=== PATIENT | male | born 1965 | race Caucasian/White ===

== ENCOUNTER 2022-09-01 12:20 | Inpatient (IN) | payer MEDICARE ==
--- NOTE | 2022-09-01 12:40 | ED ---
General Adult HPI - General Chief complaint: Shortness of Breath Stated complaint: SOB Time Seen by Provider: 09/01/22 12:27 Source: EMS Mode of arrival: EMS Limitations: no limitations - History of Present Illness Initial comments: This patient is a 57-year-old man presents to have evaluation for dyspnea. The patient states that he was in usual state of health until approximately 3 days ago. He states that he had been mowing his lawn with the riding lawnmower. Around 4:30 in the afternoon he stopped to get a drink of water. He states that when he got off the riding lawnmower he passed out. He remembers waking up just before midnight. He states that he crawled into the house and he stayed there until today. He states that today's breathing felt worse, so he called EMS who transported him here. He is complaining mainly of dyspnea. He has not noted fever or chills, no cough. He states there is a little bit of left chest pain when he takes a deep breath then. No abdominal pain, nausea or vomiting. No change in bowel movements or urination. He has not noted leg pain or swelling. Onset/Timin -: days(s) Quality: dull Consistency: intermittent Improves with: none Worsens with: other Associated Symptoms: shortness of breath Treatments Prior to Arrival: none - Related Data Home Medications Medication Instructions Recorded Confirmed Lidocaine 4% Cream [Lmx 4] 1 applic TOPICAL BID 09/01/22 09/01/22 Pioglitazone [Actos] 15 mg PO DAILY 09/01/22 09/01/22 Pregabalin [Lyrica] 300 mg PO BID 09/01/22 09/01/22 metFORMIN HCL [Glucophage] 500 mg PO DAILY 09/01/22 09/01/22 sitaGLIPtin [Januvia] 100 mg PO DAILY 09/01/22 09/01/22 Previous Rx's Medication Instructions Recorded Apixaban [Eliquis] 5 mg PO BID #60 tab 09/02/22 Amiodarone [Cordarone] 200 mg PO BID #180 tab 09/07/22 Atorvastatin [Lipitor] 40 mg PO DAILY #30 tab 09/07/22 Dapagliflozin Propanediol [Farxiga] 10 mg PO DAILY #30 tab 09/07/22 Furosemide [Lasix] 20 mg PO BID@0900,1600 #60 tab 09/07/22 Metoprolol Succinate (ER) [Toprol 50 mg PO DAILY #30 tab 09/07/22 XL] Nitroglycerin Sl Tabs [Nitrostat] 0.4 mg SUBLINGUAL Q5M PRN #10 tab 09/07/22 Spironolactone [Aldactone] 25 mg PO DAILY #30 tab 09/07/22 lisinopriL [Zestril] 2.5 mg PO DAILY #30 tab 09/07/22 Allergies Allergy/AdvReac Type Severity Reaction Status Date / Time Fish Containing Products Allergy Anaphylaxis Verified 09/01/22 15:06 [Fish] morphine AdvReac Itching Verified 09/01/22 15:06 Review of Systems ROS Statement: Those systems with pertinent positive or pertinent negative responses have been documented in the HPI. ROS Other: All systems not noted in ROS Statement are negative. Constitutional: Reports: weakness. Denies: fever, chills Eyes: Denies: vision change ENT: Denies: congestion Respiratory: Reports: as per HPI, dyspnea, wheezes. Denies: cough, hemoptysis Cardiovascular: Reports: as per HPI, chest pain, palpitations, syncope. Denies: orthopnea, edema Gastrointestinal: Denies: abdominal pain, vomiting, diarrhea, melena, hematochezia Genitourinary: Denies: dysuria, hematuria Musculoskeletal: Denies: back pain Skin: Denies: rash Neurological: Denies: headache, weakness Past Medical History Past Medical History: Diabetes Mellitus, Hypertension History of Any Multi-Drug Resistant Organisms: None Reported Past Surgical History: Back Surgery, Orthopedic Surgery Past Psychological History: Anxiety Smoking Status: Current every day smoker Past Alcohol Use History: Daily Past Drug Use History: None Reported General Exam Limitations: no limitations General appearance: alert, in no apparent distress Head exam: Present: atraumatic, normocephalic Eye exam: Present: normal appearance. Absent: scleral icterus, conjunctival injection ENT exam: Present: mucous membranes dry Neck exam: Present: normal inspection Respiratory exam: Present: wheezes, chest wall tenderness. Absent: rales, rhonchi, stridor, accessory muscle use, decreased breath sounds Cardiovascular Exam: Present: tachycardia, irregular rhythm, systolic murmur. Absent: diastolic murmur, rubs, gallop GI/Abdominal exam: Present: soft. Absent: distended, tenderness, guarding, rebound, rigid, mass Extremities exam: Present: normal inspection, normal capillary refill. Absent: pedal edema, calf tenderness Back exam: Present: normal inspection. Absent: CVA tenderness (R), CVA tenderness (L) Neurological exam: Present: alert Skin exam: Present: warm, dry, intact, normal color. Absent: rash Course Vital Signs 09/01/22 09/01/22 09/01/22 12:27 13:22 14:53 Temperature 98.4 F Pulse Rate 171 H 146 H 140 H Respiratory 20 22 18 Rate Blood Pressure 132/104 102/92 111/76 O2 Sat by Pulse 98 94 L 96 Oximetry 09/01/22 17:05 Temperature Pulse Rate 137 H Respiratory 20 Rate Blood Pressure 114/77 O2 Sat by Pulse Oximetry EKG Findings - EKG Results: EKG: interpreted by JEANINE, normal axis EKG shows: atrial fibrillation (Rate approximately 171 bpm) Medical Decision Making - Lab Data Result diagrams: 09/03/22 11:59 09/07/22 09:18 Lab Results 09/01/22 09/01/22 09/01/22 Range/Units 12:49 12:49 12:49 WBC 10.2 (3.8-10.6) k/uL RBC 4.63 (4.30-5.90) m/uL Hgb 15.8 (13.0-17.5) gm/dL Hct 46.3 (39.0-53.0) % MCV 100.0 (80.0-100.0) fL MCH 34.2 (25.0-35.0) pg MCHC 34.2 (31.0-37.0) g/dL RDW 13.2 (11.5-15.5) % Plt Count 169 (150-450) k/uL MPV 8.9 Neutrophils % 74 % Lymphocytes % 16 % Monocytes % 7 % Eosinophils % 1 % Basophils % 0 % Neutrophils # 7.6 (1.3-7.7) k/uL Lymphocytes # 1.6 (1.0-4.8) k/uL Monocytes # 0.7 (0-1.0) k/uL Eosinophils # 0.1 (0-0.7) k/uL Basophils # 0.0 (0-0.2) k/uL PT 11.2 (9.0-12.0) sec INR 1.0 (<1.2) APTT 24.2 (22.0-30.0) sec D-Dimer 0.92 H (<0.60) mg/L FEU Sodium 136 L (137-145) mmol/L Potassium 4.3 (3.5-5.1) mmol/L Chloride 107 (98-107) mmol/L Carbon Dioxide 18 L (22-30) mmol/L Anion Gap 11 mmol/L BUN 19 (9-20) mg/dL Creatinine 0.88 (0.66-1.25) mg/dL Est GFR (CKD-EPI)AfAm >90 (>60 ml/min/1.73 sqM) Est GFR (CKD-EPI)NonAf >90 (>60 ml/min/1.73 sqM) Glucose 168 H (74-99) mg/dL Calcium 8.9 (8.4-10.2) mg/dL Magnesium 1.8 (1.6-2.3) mg/dL Total Bilirubin 1.0 (0.2-1.3) mg/dL AST 21 (17-59) U/L ALT 21 (4-49) U/L Alkaline Phosphatase 74 (38-126) U/L Troponin I (0.000-0.034) ng/mL Total Protein 6.8 (6.3-8.2) g/dL Albumin 4.2 (3.5-5.0) g/dL TSH 1.220 (0.465-4.680) mIU/L 09/01/22 Range/Units 12:49 WBC (3.8-10.6) k/uL RBC (4.30-5.90) m/uL Hgb (13.0-17.5) gm/dL Hct (39.0-53.0) % MCV (80.0-100.0) fL MCH (25.0-35.0) pg MCHC (31.0-37.0) g/dL RDW (11.5-15.5) % Plt Count (150-450) k/uL MPV Neutrophils % % Lymphocytes % % Monocytes % % Eosinophils % % Basophils % % Neutrophils # (1.3-7.7) k/uL Lymphocytes # (1.0-4.8) k/uL Monocytes # (0-1.0) k/uL Eosinophils # (0-0.7) k/uL Basophils # (0-0.2) k/uL PT (9.0-12.0) sec INR (<1.2) APTT (22.0-30.0) sec D-Dimer (<0.60) mg/L FEU Sodium (137-145) mmol/L Potassium (3.5-5.1) mmol/L Chloride (98-107) mmol/L Carbon Dioxide (22-30) mmol/L Anion Gap mmol/L BUN (9-20) mg/dL Creatinine (0.66-1.25) mg/dL Est GFR (CKD-EPI)AfAm (>60 ml/min/1.73 sqM) Est GFR (CKD-EPI)NonAf (>60 ml/min/1.73 sqM) Glucose (74-99) mg/dL Calcium (8.4-10.2) mg/dL Magnesium (1.6-2.3) mg/dL Total Bilirubin (0.2-1.3) mg/dL AST (17-59) U/L ALT (4-49) U/L Alkaline Phosphatase (38-126) U/L Troponin I <0.012 (0.000-0.034) ng/mL Total Protein (6.3-8.2) g/dL Albumin (3.5-5.0) g/dL TSH (0.465-4.680) mIU/L Disposition Clinical Impression: Atrial fibrillation with rapid ventricular response Disposition: ADMITTED IP TO THIS HOSP Condition: Fair Is patient prescribed a controlled substance at d/c from ED?: No
[2022-09-01] MEDS ORDERED: DILTIAZEM DRIP BOLUS FROM BAG 1 MG SOLN IV ONE (12:46)
[2022-09-01] MEDS ORDERED: ASPIRIN 81 MG PO STA (12:47)
[2022-09-01] MEDS ORDERED: DILTIAZEM 125 MG in SODIUM CHLORIDE 0.9% 100 ML IV SCH (13:00)
[2022-09-01 13:02] LABS: Basophils % (A) 0 %; Eosinophils # (A) 0.1 k/uL (0-0.7); Eosinophils % (A) 1 %; HCT 46.3 % (39.0-53.0); HGB 15.8 gm/dL (13.0-17.5); Lymphocytes # (A) 1.6 k/uL (1.0-4.8); Lymphocytes % (A) 16 %; MCH 34.2 pg (25.0-35.0); MCHC 34.2 g/dL (31.0-37.0); Mean Platelet Volume 8.9; Monocytes # (A) 0.7 k/uL (0-1.0); Monocytes % (A) 7 %; Neutrophils # (A) 7.6 k/uL (1.3-7.7); Neutrophils % (A) 74 %; Platelet Count 169 k/uL (150-450); RBC 4.63 m/uL (4.30-5.90); RDW 13.2 % (11.5-15.5); WBC 10.2 k/uL (3.8-10.6)
--- NOTE | 2022-09-01 13:08 | XR ---
EXAMINATION TYPE: XR chest 2V DATE OF EXAM: 09/01/2022 COMPARISON: None INDICATION: Dysrhythmia difficulty in breathing TECHNIQUE: Frontal and lateral views of the chest are obtained. FINDINGS: The heart size is mildly prominent. The pulmonary vasculature is upper limits of normal. Mild increased opacities at the left base. Small left pleural effusion may be present. Mild increased lung markings are at the right base. IMPRESSION: 1. Clinical correlation for early congestive heart failure with atypical pulmonary edema at the lung bases. Atelectasis or pneumonia could be considered. Follow up exams can be performed as clinically i ndicated
[2022-09-01 13:14] LABS: ALT 21 U/L (4-49); AST 21 U/L (17-59); African American GFR (CKD) >90 (>60 ml/min/1.73 sqM); Albumin 4.2 g/dL (3.5-5.0); Alkaline Phosphatase 74 U/L (38-126); Anion Gap 11 mmol/L; Blood Urea Nitrogen 19 mg/dL (9-20); Calcium 8.9 mg/dL (8.4-10.2); Carbon Dioxide 18 mmol/L (22-30); Chloride 107 mmol/L (98-107); Glucose 168 mg/dL (74-99); Magnesium 1.8 mg/dL (1.6-2.3); Non-African American GFR(CKD) >90 (>60 ml/min/1.73 sqM); Potassium 4.3 mmol/L (3.5-5.1); Sodium 136 mmol/L (137-145); Total Protein 6.8 g/dL (6.3-8.2)
[2022-09-01 13:20] LABS: Partial Thromboplastin Time 24.2 sec (22.0-30.0); Prothrombin Time 11.2 sec (9.0-12.0)
--- NOTE | 2022-09-01 14:47 | CT ---
EXAMINATION TYPE: CT chest angio for PE DATE OF EXAM: 09/01/2022 COMPARISON: HISTORY: pe CT DLP: 864.6 mGycm Automated exposure control for dose reduction was used. CONTRAST: CT Chest for pulmonary embolism performed with with IV Contrast, patient injected with 90 mL of Isovu e 370. Three-dimensional reconstructions were performed on an alternate workstation and reviewed. FINDINGS: There is artifact, motion on the exam. LUNGS: The lungs show some groundglass opacity the right upper lobe, axial image #47, 40, left upper lobe axial image 37. There is some thickening suspected of the interstitium at the lung bases There is a right pleural effusion with minimal basilar atelectasis. The tracheobronchial tree is patent. MEDIASTINUM: There is less than satisfactory enhancement of the pulmonary artery and its branches, th ere is limited evaluation. There are no greater than 1 cm hilar or mediastinal lymph nodes. No per icardial effusion is seen. The heart is enlarged and within the left hemithorax possibly contribute d by the spinal curvature. AORTA: Root of the aorta is borderline measuring 4 cm, there is coronary artery calcification OTHER: Contrast within the inferior vena cava could be secondary to right heart failure. IMPRESSION: There is extensive artifact which limits evaluation, no sizable pulmonary embolus is evident. Groundg lass opacity could be due to underlying pneumonia within the upper lobes, congestive heart failure no t excluded. There is cardiomegaly and shift of the heart toward the left hemithorax. Right pleural ef fusion.
[2022-09-01] MEDS ORDERED: NITROGLYCERIN SL TABS 0.4 MG TAB SUBLINGUAL PRN (14:55)
[2022-09-01] MEDS ORDERED: AZITHROMYCIN 500 MG TAB PO STA (15:13)
[2022-09-01] MEDS: ENOXAPARIN 120 MG/0.8 ML SYRINGE SQ SCH (16:01)
[2022-09-01 18:07] LABS: Appearance,Urine Clear (Clear); Bilirubin,Urine Negative (Negative); Blood,Urine Negative (Negative); Color,Urine Yellow; Glucose,Urine (UA) Negative (Negative); Ketones,Urine 1+ (Negative); Leukocyte Esterase,Urine Negative (Negative); Nitrite,Urine Negative (Negative); PH, Urine 6.5 (5.0-8.0); Protein,Urine Trace (Negative)
[2022-09-01 18:08] LABS: Specific Gravity,Urine >1.050 (1.001-1.035)
[2022-09-01 20:22] LABS: Glucose,Whole Blood 198 mg/dL (70-110)
[2022-09-01] MEDS ORDERED: ONDANSETRON 4 MG/2 ML VIAL IVP PRN (21:10)
[2022-09-01] MEDS: ATORVASTATIN 10 MG TAB PO SCH (21:27)
[2022-09-01] MEDS: amLODIPine 5 MG TAB PO SCH (21:27)
[2022-09-01] MEDS: PREGABALIN 100 MG CAP PO SCH (21:28)
[2022-09-01] MEDS: NICOTINE 21MG/24HR PATCH TRANSDERM SCH (21:28)
[2022-09-01] MEDS: MELOXICAM 7.5 MG TAB PO SCH (21:28)
[2022-09-01] MEDS: INSULIN ASPART (NovoLOG) 100 UNIT/ML VIAL SQ SCH (21:28)
--- NOTE | 2022-09-02 01:03 | P.HPIM ---
History of Present Illness H&P Date: 09/01/22 Chief Complaint: Shortness of breath Patient is a 57-year-old male with a known history of hypertension, diabetes and currently everyday smoker and daily alcohol use presents to ER with complaints of exertional dyspnea and cough for the past 3 days. Patient states that he was mowing his lawn yesterday and while he was walking suddenly blacked out and had a syncopal episode. Patient was on the ground until midnight and woke up by himself. Patient crawled into the house and stayed there until today morning. Patient has not been feeling well and also having worsening shortness of breath and he called EMS. Patient was brought to ER. Patient does complain of left l ower chest pain.. No fever no chills. No cough or sputum production. No nausea vomiting abdominal pain or diarrhea. No leg swelling. Chest x-ray showed clinical correlation for early CHF with atypical pulmonary edema at the lung bases. R pneumonia could be considered. CT angio of the chest showed there is extensive artifact within Limited evaluation. No surgical pulmonary embolus is evident. Growingly opacity could be underlying pneumonia within the upper lobes. Congestive heart. Not exc luded. right pleural effusion. EKG showed atrial fibrillation with rapid regular rate 171 Laboratory data WBC 10.2 hemoglobin 15.8, platelets 169 D-dimer level is 0.92 Sodium 136 potassium 4.3 chloride 107 bicarb is 18 BUN 19 and creatinine 0.88 and blood sugar is 168 Troponin x3 negative and procalcitonin level is 0.03 and TSH 1.22 Review of Systems Constitutional: Patient denies any fever or chills . no Generalized weakness. Abdomen: Patient denied any nausea or vomiting or abd. pain Cardiovascular: Patient does have left lower chest pain, shortness of breath and exertional dyspnea and palpitations. No leg swelling. Respiratory: patient denied any cough . no sputum production. No shortness of breath Neurologic: Patient denied any numbness or tingling headache. Musculoskeletal: Patient denies any complaints of joint swelling or deformity. Skin: Negative Psychiatric: Negative Endocrine: No heat or cold intolerance. No recent weight gain. Genitourinary: No dysuria or hematuria. All other 14 point ROS negative except the above Past Medical History Past Medical History: Diabetes Mellitus, Hypertension History of Any Multi-Drug Resistant Organisms: None Reported Past Surgical History: Back Surgery, Orthopedic Surgery Past Anesthesia/Blood Transfusion Reactions: No Reported Reaction Past Psychological History: Anxiety Smoking Status: Current every day smoker Past Alcohol Use History: Daily Past Drug Use History: None Reported Medications and Allergies Home Medications Medication Instructions Recorded Confirmed Type Atorvastatin [Lipitor] 10 mg PO DAILY 09/01/22 09/01/22 History Glimepiride [Amaryl] 2 mg PO [id number]-[id number] 09/01/22 09/01/22 History Lidocaine 4% Cream [Lmx 4] 1 applic TOPICAL BID 09/01/22 09/01/22 History Losartan-Hctz 50-12.5 mg [Hyzaar 1 tab PO DAILY 09/01/22 09/01/22 History 50-12.5] Meloxicam [Mobic] 7.5 mg PO BID 09/01/22 09/01/22 History Pioglitazone [Actos] 15 mg PO DAILY 09/01/22 09/01/22 History Pregabalin [Lyrica] 300 mg PO BID 09/01/22 09/01/22 History amLODIPine [Norvasc] 5 mg PO DAILY 09/01/22 09/01/22 History metFORMIN HCL [Glucophage] 500 mg PO DAILY 09/01/22 09/01/22 History sitaGLIPtin [Januvia] 100 mg PO DAILY 09/01/22 09/01/22 History Allergies Allergy/AdvReac Type Severity Reaction Status Date / Time Fish Containing Products Allergy Anaphylaxis Verified 09/01/22 15:06 [Fish] morphine AdvReac Itching Verified 09/01/22 15:06 Physical Exam Vitals: Vital Signs Temp Pulse Pulse Resp BP BP Pulse Ox 09/02/22 00:00 97.6 F 130 H 20 146/98 94 L 09/01/22 20:00 97.5 F L 130 H 22 155/89 92 L 09/01/22 18:50 98.4 F 139 H 22 106/75 97 09/01/22 17:05 137 H 20 114/77 09/01/22 14:53 140 H 18 111/76 96 09/01/22 13:22 146 H 22 102/92 94 L 09/01/22 12:27 98.4 F 171 H 20 132/104 98 Intake and Output 09/01/22 09/01/22 09/02/22 14:59 22:59 06:59 Output Total 300 Balance -300 Output: Urine 300 Other: Voiding Method Urinal Weight 113.398 kg 113.398 kg PHYSICAL EXAMINATION: Patient is lying in the bed comfortably, no acute distress, awake alert and oriented.. HEENT: Normocephalic. Neck is supple. Pupils reactive. Nostrils clear. Oral cavity is moist. Neck reveals no JVD, carotid bruits, or thyromegaly. CHEST EXAMINATION: Trachea is central. Symmetrical expansion. Bibasilar crackles. No wheezing. No rhonchi.. CARDIAC: Normal S1, S2 with no gallops. No murmurs irregularly rhythm. ABDOMEN: Soft. Bowel sounds present. Nontender. No organomegaly. No abdominal bruits. Extremities: Bilateral lower extremity trace edema. No clubbing or cyanosis Neurologically awake, alert, oriented x3 with well-coordinated movements. No focal deficits noted Skin: No rash or skin lesions. Psychiatric: Coperative. Nonsuicidal, Musculoskeletal: No joint swelling or deformity. Normal range of motion. Results CBC & Chem 7: 09/01/22 12:49 09/01/22 12:49 Labs: Abnormal Lab Results - Last 24 Hours (Table) 09/01/22 09/01/22 09/01/22 Range/Units 12:49 12:49 17:51 D-Dimer 0.92 H (<0.60) mg/L FEU Sodium 136 L (137-145) mmol/L Carbon Dioxide 18 L (22-30) mmol/L Glucose 168 H (74-99) mg/dL POC Glucose (mg/dL) (70-110) mg/dL Ur Specific Keller >1.050 H (1.001-1.035) Urine Protein Trace H (Negative) Urine Ketones 1+ H (Negative) 09/01/22 Range/Units 20:21 D-Dimer (<0.60) mg/L FEU Sodium (137-145) mmol/L Carbon Dioxide (22-30) mmol/L Glucose (74-99) mg/dL POC Glucose (mg/dL) 198 H (70-110) mg/dL Ur Specific Keller (1.001-1.035) Urine Protein (Negative) Urine Ketones (Negative) Thrombosis Risk Factor Assmnt - DVT/VTE Prophylaxis DVT/VTE Prophylaxis: Pharmacologic Prophylaxis ordered - Choose All That Apply Any of the Below Risk Factors Present?: Yes Each Factor Represents 1 point: Obesity (BMI >25) Other Risk Factors: No Other congenital or acquired thrombophilia - If yes, enter type in comment: No Thrombosis Risk Factor Assessment Total Risk Factor Score: 1 Thrombosis Risk Factor Assessment Level: Low Risk Assessment and Plan Assessment: New onset atrial fibrillation with rapid incurvate Acute CHF due to A. fib with RVR. EF not known. Elevated D-dimer level. No evidence of PE as per CTA chest. Hypertension Diabetes type 2 [id number] Currently everyday smoker Anxiety Daily alcohol use DVT prophylaxis Plan: Patient will be continued on telemetry monitoring. Serial troponin x3 negative. Continue with Cardizem drip and anticoagulation was started with Lovenox subcu. Patient will be given IV Lasix and cardiology was consulted. 2D echocardiogram and TSH level is within normal limits. Follow-up closely. Time with Patient: Greater than 30
[2022-09-02] MEDS ORDERED: FUROSEMIDE 10 MG/ML 4 ML VIAL IV STA (01:07)
[2022-09-02] MEDS: ENOXAPARIN 120 MG/0.8 ML SYRINGE SQ SCH (01:37)
[2022-09-02 06:12] LABS: Glucose,Whole Blood 161 mg/dL (70-110)
[2022-09-02] MEDS: INSULIN ASPART (NovoLOG) 100 UNIT/ML VIAL SQ SCH ×4 (06:25→21:01)
[2022-09-02 08:45] LABS: Basophils % (A) 1 %; Eosinophils # (A) 0.1 k/uL (0-0.7); Eosinophils % (A) 1 %; HCT 46.1 % (39.0-53.0); HGB 15.6 gm/dL (13.0-17.5); Lymphocytes # (A) 2.2 k/uL (1.0-4.8); Lymphocytes % (A) 30 %; MCH 34.1 pg (25.0-35.0); MCHC 33.7 g/dL (31.0-37.0); Macrocytosis Slight; Mean Platelet Volume 9.1; Monocytes # (A) 0.6 k/uL (0-1.0); Monocytes % (A) 8 %; Neutrophils # (A) 4.3 k/uL (1.3-7.7); Neutrophils % (A) 58 %; Platelet Count 149 k/uL (150-450); RBC 4.57 m/uL (4.30-5.90); RDW 13.1 % (11.5-15.5); WBC 7.5 k/uL (3.8-10.6)
[2022-09-02 08:52] LABS: African American GFR (CKD) >90 (>60 ml/min/1.73 sqM); Anion Gap 11 mmol/L; Blood Urea Nitrogen 19 mg/dL (9-20); Calcium 8.9 mg/dL (8.4-10.2); Carbon Dioxide 21 mmol/L (22-30); Chloride 105 mmol/L (98-107); Glucose 145 mg/dL (74-99); Non-African American GFR(CKD) >90 (>60 ml/min/1.73 sqM); Potassium 3.7 mmol/L (3.5-5.1); Sodium 137 mmol/L (137-145)
[2022-09-02] MEDS ORDERED: APIXABAN 5 MG TAB PO SCH (09:00)
[2022-09-02] MEDS ORDERED: ASPIRIN 325 MG TAB PO SCH (09:00)
[2022-09-02] MEDS: NICOTINE 21MG/24HR PATCH TRANSDERM SCH (09:54)
[2022-09-02] MEDS: METOPROLOL TARTRATE 25 MG TAB PO SCH ×2 (09:54→21:02)
[2022-09-02] MEDS: PREGABALIN 100 MG CAP PO SCH ×2 (09:54→21:02)
[2022-09-02] MEDS: amLODIPine 5 MG TAB PO SCH (09:54)
[2022-09-02] MEDS: FUROSEMIDE 10 MG/ML 4 ML VIAL IV SCH ×2 (09:54→21:01)
[2022-09-02] MEDS: ATORVASTATIN 10 MG TAB PO SCH (09:54)
[2022-09-02] MEDS: MELOXICAM 7.5 MG TAB PO SCH ×2 (09:54→21:01)
--- NOTE | 2022-09-02 09:58 | P.CRDCN ---
History of Present Illness History of present illness: HISTORY OF PRESENTING ILLNESS This is a pleasant 57-year-old male past medical history significant for type 2 diabetes, hypertension, dyslipidemia, chronic nicotine dependence, daily alcohol use. 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 We have been asked to see in consultation for new onset atrial fibrillation with RVR. Patient presents to the emergency department with complaints of shortness of breath for the past 2-3 days. He states over the past 23 days patient has progressively been having worsening shortness of breath, productive cough. Patient was mowing the lawn yesterday and had a syncopal episode. He was not feeling well and his shortness of breath got worse and called EMS and presented to the ER for further evaluation. He denies any chest pain, did have some pain in his left upper/side rib area. He denies any sick contacts. He denies a fever or chills. He denies any history of CAD, GA, stroke, seizure. He denies a family history of cardiac disease. He is a current every day smoker. In the emergency department he was noted to be in A. fib with RVR, started on a Cardizem drip DIAGNOSTICS EKG reveals atrial fibrillation with rapid ventricular response, heart rate 171 Telemetry tracings indicate age fibrillation with fast ventricular response, poorly controlled heart rates CT of the chest revealed extensive artifact, no signs of pulmonary embolus is evident. Groundglass opacities could be represented as pneumonia versus congestive heart failure Laboratory reviewed, troponin negative 3, proBNP 5400, sodium 137, potassium 3.7, BUN 19, serum crit 0.8, WBC 7.5, hemoglobin 15, platelets 149 Current home medications include metformin, amlodipine 5 mg daily, atorvastatin 10 mg daily, losartanhydrochlorothiazide 5012 0.5 mg daily, Lyrica,, mobic, Ja david, Actos, glimepiride REVIEW OF SYSTEMS At the time of my exam: CONSTITUTIONAL: Denies fever or chills. CARDIOVASCULAR: Denies chest pain, +shortness of breath, Denies orthopnea, PND or palpitations. RESPIRATORY: +productive cough. GASTROINTESTINAL: Denies abdominal pain, diarrhea, constipation, nausea or vomiting. MUSCULOSKELETAL: Denies myalgias. NEUROLOGIC: Denies numbness, tingling, headacbe or weakness. ENDOCRINE: Denies fatigue, weight change, polydipsia or polyurina. GENITOURINARY: Denies burning, hematuria or urgency with micturation. HEMATOLOGIC: Denies history of anemia or bleeding. PHYSICAL EXAMINATION Vitals 109/70, heart rate 122, afebrile, saturation 95% on 4 L nasal cannula CONSTITUTIONAL: No apparent distress. HEENT: Head is normocephalic. Pupils are equal, round. Sclerae anicteric. Mucous membranes of the mouth are moist. No JVD. No carotid bruit. CHEST EXAMINATION: Lungs are crackles in bilateral bases and wheezing bilaterally to auscultation. No chest wall tenderness is noted on palpation or with deep breathing. HEART EXAMINATION: Irregular tachycardic rate and rhythm. S1, S2 heard. No murmurs, gallops or rub. ABDOMEN: Soft, nontender. Positive bowel sounds. EXTREMITIES: 2+ peripheral pulses, no lower extremity edema and no calf tenderness. SKIN: warm, dry NEUROLOGIC EXAMINATION: Patient is awake, alert and oriented x3. ASSESSMENT New onset paroxysmal atrial fibrillation with RVR -[id number] score 2 Symptoms of Shortness of breath, productive cough, possibly combination of pneumonia vs acute heart failure exacerbation, unknown EF, echo pending Syncopal episode Type 2 diabetes Hypertension Dyslipidemia Chronic nicotine dependence Daily alcohol use PLAN IV Cardizem Start metoprolol tartrate 25mg BID Obtain 2D echocardiogram Continue IV Lasix for additional 24 hours Monitor renal function and electrolytes, I/Os, daily weights Recommend anticoagulation with Eliquis 5mg BID, case management consulted for coverage Continue cardiac telemetry Continue statin Further recommendations based on clinical course Nurse practitioner note has been reviewed by physician. Signing provider agrees with the documented findings, assessment, and plan of care. Past Medical History Past Medical History: Diabetes Mellitus, Hypertension History of Any Multi-Drug Resistant Organisms: None Reported Past Surgical History: Back Surgery, Orthopedic Surgery Past Anesthesia/Blood Transfusion Reactions: No Reported Reaction Past Psychological History: Anxiety Smoking Status: Current every day smoker Past Alcohol Use History: Daily Past Drug Use History: None Reported Medications and Allergies Home Medications Medication Instructions Recorded Confirmed Type Atorvastatin [Lipitor] 10 mg PO DAILY 09/01/22 09/01/22 History Glimepiride [Amaryl] 2 mg PO [id number]-[id number] 09/01/22 09/01/22 History Lidocaine 4% Cream [Lmx 4] 1 applic TOPICAL BID 09/01/22 09/01/22 History Losartan-Hctz 50-12.5 mg [Hyzaar 1 tab PO DAILY 09/01/22 09/01/22 History 50-12.5] Meloxicam [Mobic] 7.5 mg PO BID 09/01/22 09/01/22 History Pioglitazone [Actos] 15 mg PO DAILY 09/01/22 09/01/22 History Pregabalin [Lyrica] 300 mg PO BID 09/01/22 09/01/22 History amLODIPine [Norvasc] 5 mg PO DAILY 09/01/22 09/01/22 History metFORMIN HCL [Glucophage] 500 mg PO DAILY 09/01/22 09/01/22 History sitaGLIPtin [Januvia] 100 mg PO DAILY 09/01/22 09/01/22 History Allergies Allergy/AdvReac Type Severity Reaction Status Date / Time Fish Containing Products Allergy Anaphylaxis Verified 09/01/22 15:06 [Fish] morphine AdvReac Itching Verified 09/01/22 15:06 Physical Exam Vitals: Vital Signs Temp Pulse Pulse Resp BP BP Pulse Ox 09/02/22 04:00 98.3 F 124 H 18 129/75 95 09/02/22 02:00 130 H 20 09/02/22 00:00 97.6 F 130 H 20 146/98 94 L 09/01/22 20:00 97.5 F L 130 H 22 155/89 92 L 09/01/22 18:50 98.4 F 139 H 22 106/75 97 09/01/22 17:05 137 H 20 114/77 09/01/22 14:53 140 H 18 111/76 96 09/01/22 13:22 146 H 22 102/92 94 L 09/01/22 12:27 98.4 F 171 H 20 132/104 98 Intake and Output 09/01/22 09/02/22 09/02/22 22:59 06:59 14:59 Output Total 1200 Balance -1200 Output: Urine 1200 Other: Voiding Method Urinal Urinal Weight 113.398 kg Results 09/02/22 08:08 09/02/22 08:08 Cardiac Enzymes 09/01/22 09/01/22 09/01/22 Range/Units 12:49 12:49 15:32 AST 21 (17-59) U/L Troponin I <0.012 <0.012 (0.000-0.034) ng/mL 09/01/22 Range/Units 18:18 AST (17-59) U/L Troponin I <0.012 (0.000-0.034) ng/mL Coagulation 09/01/22 Range/Units 12:49 PT 11.2 (9.0-12.0) sec APTT 24.2 (22.0-30.0) sec CBC 09/01/22 Range/Units 12:49 WBC 10.2 (3.8-10.6) k/uL RBC 4.63 (4.30-5.90) m/uL Hgb 15.8 (13.0-17.5) gm/dL Hct 46.3 (39.0-53.0) % Plt Count 169 (150-450) k/uL Comprehensive Metabolic Panel 09/01/22 Range/Units 12:49 Sodium 136 L (137-145) mmol/L Potassium 4.3 (3.5-5.1) mmol/L Chloride 107 (98-107) mmol/L Carbon Dioxide 18 L (22-30) mmol/L BUN 19 (9-20) mg/dL Creatinine 0.88 (0.66-1.25) mg/dL Glucose 168 H (74-99) mg/dL Calcium 8.9 (8.4-10.2) mg/dL AST 21 (17-59) U/L ALT 21 (4-49) U/L Alkaline Phosphatase 74 (38-126) U/L Total Protein 6.8 (6.3-8.2) g/dL Albumin 4.2 (3.5-5.0) g/dL Current Medications Generic Name Dose Route Start Last Admin Trade Name Freq PRN Reason Stop Dose Admin Acetaminophen 650 mg 09/01/22 21:10 Acetaminophen Tab 325 Mg Tab PO Q4HR PRN Fever and/ or Pain Amlodipine Besylate 5 mg 09/01/22 21:15 09/01/22 21:27 Amlodipine 5 Mg Tab PO 5 mg DAILY [facility] Administration Aspirin 325 mg 09/02/22 09:00 Aspirin 325 Mg Tab PO DAILY [facility] Atorvastatin Calcium 10 mg 09/01/22 21:15 09/01/22 21:27 Atorvastatin 10 Mg Tab PO 10 mg DAILY [facility] Administration Enoxaparin Sodium 110 mg 09/02/22 12:00 Enoxaparin 120 Mg/0.8 Ml Syringe SQ Q12HR [facility] Furosemide 40 mg 09/02/22 09:00 Furosemide 10 Mg/Ml 4 Ml Vial IV Q12HR [facility] Diltiazem HCl 125 mg/ Sodium 125 mls @ 5 mls/hr 09/01/22 13:00 09/01/22 13:11 Chloride IV 5 mg/hr .Q24H [facility] 5 mls/hr Administration 5 MG/HR Insulin Aspart 0 unit 09/01/22 21:09 09/02/22 06:25 Insulin Aspart (Novolog) 100 Unit/Ml Vial SQ Not Given ACHS [facility] Protocol Meloxicam 7.5 mg 09/01/22 21:15 09/01/22 21:28 Meloxicam 7.5 Mg Tab PO 7.5 mg BID [facility] Administration Nicotine 1 patch 09/01/22 21:15 09/01/22 21:28 Nicotine 21mg/24hr Patch TRANSDERM 1 patch DAILY [facility] Administration Nitroglycerin 0.4 mg 09/01/22 14:55 Nitroglycerin Sl Tabs 0.4 Mg Tab SUBLINGUAL Q5M PRN Chest Pain Ondansetron HCl 4 mg 09/01/22 21:10 Ondansetron 4 Mg/2 Ml Vial IVP Q6HR PRN Nausea And Vomiting Pregabalin 300 mg 09/01/22 21:15 09/01/22 21:28 Pregabalin 100 Mg Cap PO 300 mg BID [facility]QU[facility] Administration Intake and Output 09/01/22 09/02/22 09/02/22 22:59 06:59 14:59 Output Total 1200 Balance -1200 Output: Urine 1200 Other: Voiding Method Urinal Urinal Weight 113.398 kg 09/01/22 12:49 09/01/22 12:49
[2022-09-02] MEDS ORDERED: AMIODARONE 360 MG in DEXTROSE 5% IN WATER 200 ML IV ONE ×2 (10:43)
[2022-09-02] MEDS ORDERED: DEXTROSE 5% IN WATER 100 ML with AMIODARONE 150 MG IV ONE (10:43)
[2022-09-02 11:44] LABS: Glucose,Whole Blood 215 mg/dL (70-110)
[2022-09-02] MEDS ORDERED: ENOXAPARIN 120 MG/0.8 ML SYRINGE SQ SCH (12:00)
[2022-09-02] MEDS ORDERED: HEPARIN SODIUM 1,000 UN/ML (10ML VL) IV PRN (12:38)
[2022-09-02 13:41] LABS: INR 1.1 (<1.2); Partial Thromboplastin Time 29.8 sec (22.0-30.0); Prothrombin Time 11.6 sec (9.0-12.0)
[2022-09-02] MEDS: HEPARIN SOD,PORK IN 0.45% NACL 25,000 UNIT in 0.45% NACL 1 250ML.BAG IV SCH (14:06)
[2022-09-02 15:33] LABS: Chol/HDL Ratio 2.07 Ratio; LDL Cholesterol,Calculated 40.3 mg/dL (0.0-131.0)
[2022-09-02 16:57] LABS: Glucose,Whole Blood 184 mg/dL (70-110)
[2022-09-02] MEDS: AMIODARONE 450 MG in DEXTROSE 5% IN WATER 250 ML IV SCH ×2 (18:18)
[2022-09-02 19:58] LABS: Glucose,Whole Blood 213 mg/dL (70-110)
--- NOTE | 2022-09-02 21:53 | CA ---
Transthoracic Echo Report Name: Fabrizio Santamaria Age: 57 Gender: M : 1965 Exam Date: 09/02/2022 09:19 Exam Location: [facility] Echo Ht (in): 72 Wt (lb): 250 Ordering Physician: Camelia Raygoza MD Attending/Referring Phys: [employer] Tender Estefani Gamez RDCS Procedure CPT: Indications: a.fib Cardiac Hx: Technical Quality: Technically difficult study Contrast 1: Total Dose (mL): Contrast 2: Total Dose (mL): MEASUREMENTS (Male / Female) Normal Values 2D ECHO LV Diastolic Diameter PLAX 5.2 cm 4.2 - 5.9 / 3.9 - 5.3 cm LV Systolic Diameter PLAX 4.6 cm IVS Diastolic Thickness 1.0 cm 0.6 - 1.0 / 0.6 - 0.9 cm LVPW Diastolic Thickness 1.3 cm 0.6 - 1.0 / 0.6 - 0.9 cm LV Relative Wall Thickness 0.4 RV Internal Dim ED PLAX 3.8 cm LA Systolic Diameter LX 3.6 cm 3.0 - 4.0 / 2.7 - 3.8 cm M-MODE Aortic Root Diameter MM 3.7 cm MV E Point Septal Separation 1.0 cm DOPPLER TR Peak Velocity 146.5 cm/s TR Peak Gradient 8.6 mmHg Right Ventricular Systolic Press 23.6 mmHg FINDINGS Left Ventricle Left ventricular ejection fraction is estimated at 20-25 %. Left ventricular cavity size normal. Right Ventricle Moderate right ventricular dilatation. Right ventricular systolic pressure within normal limits. Right Atrium Normal right atrial size. Left Atrium Normal left atrial size. No evidence for an atrial septal defect. Mitral Valve Structurally normal mitral valve. No mitral stenosis, regurgitation or prolapse. Aortic Valve Trileaflet aortic valve. No aortic valve stenosis or regurgitation. Tricuspid Valve Mild tricuspid regurgitation. Pulmonic Valve Pulmonic valve not well visualized. Pericardium Normal pericardium. No pericardial effusion. Aorta Normal size aortic root and proximal ascending aorta. CONCLUSIONS Severe LV dysfunction ejection fraction less than 25% Previewed by: Dr. Gucci Gaines MD (Electronically Signed) Final Date: 02 September 2022 21:52
--- NOTE | 2022-09-03 00:36 | P.PN ---
Subjective Progress Note Date: 09/02/22 Patient is a 57-year-old male with a known history of hypertension, diabetes and currently everyday smoker and daily alcohol use presents to ER with complaints of exertional dyspnea and cough for the past 3 days. Patient states that he was mowing his lawn yesterday and while he was walking suddenly blacked out and had a syncopal episode. Patient was on the ground until midnight and woke up by himself. Patient crawled into the house and stayed there until today morning. Patient has not been feeling well and also having worsening shortness of breath and he called EMS. Patient was brought to ER. Patient does complain of left lower chest pain.. No fever no chills. No cough or sputum production. No nausea vomiting abdominal pain or diarrhea. No leg swelling. Chest x-ray showed clinical correlation for early CHF with atypical pulmonary edema at the lung bases. R pneumonia could be considered. CT angio of the chest showed there is extensive artifact within Limited evaluation. No surgical pulmonary embolus is evident. Growingly opacity could be underlying pneumonia within the upper lobes. Congestive heart. Not excluded. right pleural effusion. EKG showed atrial fibrillation with rapid regular rate 171 Laboratory data WBC 10.2 hemoglobin 15.8, platelets 169 D-dimer level is 0.92 Sodium 136 potassium 4.3 chloride 107 bicarb is 18 BUN 19 and creatinine 0.88 and blood sugar is 168 Troponin x3 negative and procalcitonin level is 0.03 and TSH 1.22 09/02/2022 Patient is currently sitting in the chair. Breathing status is better. Otherwise patient is still tachycardic and irregular. Patient was started on amiodarone drip as per cardiology and started on metoprolol. On anticoagulation with heparin drip. No complaints of chest pain. No nausea vomiting abdominal pain or diarrhea. Patient is being current on IV Lasix for 1 more day. Cardiology is on board. No nausea vomiting abdominal diarrhea. No cough or sputum production. Symptomatically improving. Laboratory pressure WBC 7.4 hemoglobin 15.6 and platelets 149 sodium 137 potassium 3.7 chloride 105 bicarb is 21 BUN 19 and creatinine 0.87 and proBNP 5400 LDL 40.3 Current medications reviewed. Objective - Vital Signs Vital signs: Vital Signs Temp 98.0 F 09/02/22 11:47 Pulse 130 H 09/02/22 11:47 Resp 22 09/02/22 11:47 BP 124/75 09/02/22 11:47 Pulse Ox 95 09/02/22 11:47 FiO2 Intake & Output 09/01/22 09/02/22 09/02/22 18:59 06:59 18:59 Output Total 1200 625 Balance -1200 -625 Weight 113.398 kg Output: Urine 1200 625 Other: Voiding Method Urinal Urinal - Exam PHYSICAL EXAMINATION: Patient is lying in the bed comfortably, no acute distress, awake alert and oriented.. HEENT: Normocephalic. Neck is supple. Pupils reactive. Nostrils clear. Oral cavity is moist. Neck reveals no JVD, carotid bruits, or thyromegaly. CHEST EXAMINATION: Trachea is central. Symmetrical expansion. Bibasilar crackles. No wheezing. No rhonchi..Improved air entry CARDIAC: Normal S1, S2 with no gallops. No murmurs irregularly rhythm. ABDOMEN: Soft. Bowel sounds present. Nontender. No organomegaly. No abdominal bruits. Extremities: Bilateral lower extremity trace edema. No clubbing or cyanosis Neurologically awake, alert, oriented x3 with well-coordinated movements. No focal deficits noted Skin: No rash or skin lesions. Psychiatric: Coperative. Nonsuicidal, Musculoskeletal: No joint swelling or deformity. Normal range of motion. - Labs CBC & Chem 7: 09/02/22 08:08 09/02/22 08:08 Labs: Abnormal Lab Results - Last 24 Hours (Table) 09/01/22 09/01/22 09/02/22 Range/Units 17:51 20:21 06:11 MCV (80.0-100.0) fL Plt Count (150-450) k/uL Carbon Dioxide (22-30) mmol/L Glucose (74-99) mg/dL POC Glucose (mg/dL) 198 H 161 H (70-110) mg/dL Ur Specific [place] >1.050 H (1.001-1.035) Urine Protein Trace H (Negative) Urine Ketones 1+ H (Negative) 09/02/22 09/02/22 09/02/22 Range/Units 08:08 08:08 11:42 MCV 101.0 H (80.0-100.0) fL Plt Count 149 L (150-450) k/uL Carbon Dioxide 21 L (22-30) mmol/L Glucose 145 H (74-99) mg/dL POC Glucose (mg/dL) 215 H (70-110) mg/dL Ur Specific [place] (1.001-1.035) Urine Protein (Negative) Urine Ketones (Negative) Assessment and Plan Assessment: New onset atrial fibrillation with rapid Ventricular rate Acute CHF With severely reduced ejection fraction 25%. Worsened due to A. fib with RVR. Elevated D-dimer level. No evidence of PE as per CTA chest. Hypertension Diabetes type 2 [id number] Currently everyday smoker Anxiety Daily alcohol use DVT prophylaxis Plan: Patient will be continued on telemetry monitoring. Serial troponin x3 negative. Cardizem drip has been discontinued and patient was started amiodarone drip. Started on metoprolol p.o. and anticoagulation with IV heparin. Continue with IV Lasix for another 24 hours. Cardiology is on board. Planning for cardiac catheterization due to severely reduced ejection fraction 25% as per 2D echocardiogram. Continue telemetry and follow-up closely. Prognosis is guarded at this time. Time with Patient: Greater than 30
[2022-09-03 06:01] LABS: Glucose,Whole Blood 141 mg/dL (70-110)
[2022-09-03] MEDS: INSULIN ASPART (NovoLOG) 100 UNIT/ML VIAL SQ SCH ×4 (06:02→20:35)
--- NOTE | 2022-09-03 08:21 | P.PN ---
Subjective Progress Note Date: 09/03/22 Principal diagnosis: Severe cardiomyopathy This is a 57-year-old gentleman with hypertension and dyslipidemia and history of alcohol use who was admitted to the hospital with increasing shortness of breath and bilateral lower extremities edema and he was diagnosed was congestive heart failure. Also he was found to be in atrial fibrillation of unknown duration. He underwent an echocardiogram for further investigation and that revealed severe cardiomyopathy with EF of around 20% September [id number] The patient was seen this morning. He continues to have shortness of breath but he states is better. He continues to have severe bilateral lower 70s edema worse on the left than the right. Clearly distal end failure. He continues to be in atrial fibrillation with overall controlled heart rate. He is currently on amiodarone IV and beta kojo by mouth. I discussed the results of the echocardiogram with him in details. I advised the patient to undergo heart catheterization but unfortunately he received oral anticoagulation yesterday and was switch him back to heparin IV today. We will consider doing the heart catheterization either asthma or as an outpatient. Meanwhile I am going to stop metoprolol tartrate and start the patient on metoprolol succinate. Add small dose of MANAS inhibitor with lisinopril. Continue IV diuretics. Continue monitor the kidney function and electrolytes. Follow-up with the patient Objective - Vital Signs Vital signs: Vital Signs Temp 98.6 F 09/03/22 04:00 Pulse 126 H 09/03/22 04:00 Resp 18 09/03/22 04:00 BP 116/68 09/03/22 04:00 Pulse Ox 96 09/03/22 04:00 FiO2 Intake & Output 09/02/22 09/03/22 09/03/22 18:59 06:59 18:59 Intake Total 377.898 0 Output Total 625 600 Balance -625 -222.102 0 Weight 127.9 kg Intake: Intake, IV Titration 137.898 Amount Heparin Sod,Pork in 0.45% 137.898 NaCl 25,000 unit In 0.45 % NaCl 1 250ml.bag @ 8. 8185 UNITS/KG/HR 10 mls/ hr IV .Q24H [facility] Rx#: [id number] Oral 240 0 Output: Urine 625 600 Other: Voiding Method Urinal # Voids 3 - Constitutional General appearance: Present: no acute distress - Respiratory Respiratory: bilateral: rales - Cardiovascular Rhythm: irregularly irregular Heart sounds: normal: S1, S2 - Labs CBC & Chem 7: 09/02/22 08:08 09/02/22 08:08 Labs: Abnormal Lab Results - Last 24 Hours (Table) 09/02/22 09/02/22 09/02/22 Range/Units 08:08 08:08 11:42 MCV 101.0 H (80.0-100.0) fL Plt Count 149 L (150-450) k/uL APTT (22.0-30.0) sec Carbon Dioxide 21 L (22-30) mmol/L Glucose 145 H (74-99) mg/dL POC Glucose (mg/dL) 215 H (70-110) mg/dL 09/02/22 09/02/22 09/02/22 Range/Units 16:56 18:17 19:57 MCV (80.0-100.0) fL Plt Count (150-450) k/uL APTT 35.3 H (22.0-30.0) sec Carbon Dioxide (22-30) mmol/L Glucose (74-99) mg/dL POC Glucose (mg/dL) 184 H 213 H (70-110) mg/dL 09/03/22 09/03/22 Range/Units 01:13 06:00 MCV (80.0-100.0) fL Plt Count (150-450) k/uL APTT 32.9 H (22.0-30.0) sec Carbon Dioxide (22-30) mmol/L Glucose (74-99) mg/dL POC Glucose (mg/dL) 141 H (70-110) mg/dL Microbiology - Last 24 Hours (Table) 09/01/22 19:32 Blood Culture - Preliminary Blood No Growth after 24 hours 09/01/22 19:28 Blood Culture - Preliminary Blood No Growth after 24 hours Assessment and Plan Assessment: Assessment Atrial fibrillation with RVR of unknown duration Congestive heart failure exacerbation with evidence of biventricular failure secondary to heart failure with reduced ejection fraction Severe cardiomyopathy unknown if is ischemic or nonischemic. Likely to be nonischemic related to atrial fibrillation versus alcohol use Obesity History of daily alcohol use Multiple comorbid conditions Plan DC metoprolol tartrate and start the patient on metoprolol succinate Add lisinopril to the current medical regimen Continue monitor the kidney function and electrolytes Continue Lasix IV Consider coronary angiogram Continue heparin IV Follow-up with the patient
[2022-09-03] MEDS ORDERED: METOPROLOL SUCCINATE (ER) 25 MG TAB.ER.24H PO SCH (09:30)
[2022-09-03] MEDS: HEPARIN SOD,PORK IN 0.45% NACL 25,000 UNIT in 0.45% NACL 1 250ML.BAG IV SCH (09:44)
[2022-09-03] MEDS: MELOXICAM 7.5 MG TAB PO SCH ×2 (09:45→20:36)
[2022-09-03] MEDS: PREGABALIN 100 MG CAP PO SCH ×2 (09:45→20:36)
[2022-09-03] MEDS: FUROSEMIDE 10 MG/ML 4 ML VIAL IV SCH ×2 (09:45→20:36)
[2022-09-03] MEDS: NICOTINE 21MG/24HR PATCH TRANSDERM SCH (09:46)
[2022-09-03] MEDS: ATORVASTATIN 10 MG TAB PO SCH (09:46)
[2022-09-03] MEDS: AMIODARONE 200 MG TAB PO SCH ×2 (09:46→20:37)
[2022-09-03] MEDS: AMIODARONE 450 MG in DEXTROSE 5% IN WATER 250 ML IV SCH ×2 (09:55)
[2022-09-03] MEDS: METOPROLOL TARTRATE 25 MG TAB PO SCH (10:09)
[2022-09-03 12:05] LABS: Glucose,Whole Blood 197 mg/dL (70-110)
[2022-09-03] MEDS: ACETAMINOPHEN TAB 325 MG TAB PO PRN ×2 (12:26→22:00)
[2022-09-03 12:49] LABS: Basophils # (A) 0.1 k/uL (0-0.2); Basophils % (A) 1 %; Eosinophils # (A) 0.1 k/uL (0-0.7); Eosinophils % (A) 1 %; HCT 44.3 % (39.0-53.0); HGB 15.3 gm/dL (13.0-17.5); Lymphocytes # (A) 2.3 k/uL (1.0-4.8); Lymphocytes % (A) 27 %; MCH 34.8 pg (25.0-35.0); MCHC 34.7 g/dL (31.0-37.0); MCV 100.3 fL (80.0-100.0); Mean Platelet Volume 9.5; Monocytes # (A) 0.9 k/uL (0-1.0); Monocytes % (A) 10 %; Neutrophils # (A) 4.9 k/uL (1.3-7.7); Neutrophils % (A) 58 %; Platelet Count 148 k/uL (150-450); RBC 4.41 m/uL (4.30-5.90); WBC 8.5 k/uL (3.8-10.6)
[2022-09-03 13:04] LABS: African American GFR (CKD) >90 (>60 ml/min/1.73 sqM); Anion Gap 10 mmol/L; Blood Urea Nitrogen 28 mg/dL (9-20); Calcium 8.8 mg/dL (8.4-10.2); Carbon Dioxide 20 mmol/L (22-30); Chloride 103 mmol/L (98-107); Glucose 192 mg/dL (74-99); Non-African American GFR(CKD) 80 (>60 ml/min/1.73 sqM); Potassium 3.8 mmol/L (3.5-5.1); Sodium 133 mmol/L (137-145)
[2022-09-03 13:11] LABS: INR 1.1 (<1.2); Partial Thromboplastin Time 44.2 sec (22.0-30.0); Prothrombin Time 11.6 sec (9.0-12.0)
[2022-09-03 16:44] LABS: Glucose,Whole Blood 231 mg/dL (70-110)
--- NOTE | 2022-09-03 18:17 | P.PN ---
Subjective Progress Note Date: 09/03/22 57-year-old male with a known history of hypertension, diabetes and currently everyday smoker and daily alcohol use presents to ER with complaints of exertional dyspnea and cough for the past 3 days. Patient states that he was mowing his lawn yesterday and while he was walking suddenly blacked out and had a syncopal episode. Patient was on the ground until midnight and woke up by himself. Patient crawled into the house and stayed there until today morning. Patient has not been feeling well and also having worsening shortness of breath and he called EMS. Patient was brought to ER. Patient does complain of left lower chest pain.. No fever no chills. No cough or sputum production. No nausea vomiting abdominal pain or diarrhea. No leg swelling. Chest x-ray showed clinical correlation for early CHF with atypical pulmonary edema at the lung bases. R pneumonia could be considered. CT angio of the chest showed there is extensive artifact within Limited evaluation. No surgical pulmonary embolus is evident. Growingly opacity could be underlying pneumonia within the upper lobes. Congestive heart. Not excluded. right pleural effusion. EKG showed atrial fibrillation with rapid regular rate 171 Laboratory data WBC 10.2 hemoglobin 15.8, platelets 169 D-dimer level is 0.92 Sodium 136 potassium 4.3 chloride 107 bicarb is 18 BUN 19 and creatinine 0.88 and blood sugar is 168 Troponin x3 negative and procalcitonin level is 0.03 and TSH 1.22 Objective - Vital Signs Vital signs: Vital Signs Temp 97.4 F L 09/03/22 12:21 Pulse 115 H 09/03/22 12:21 Resp 18 09/03/22 12:21 BP 98/63 09/03/22 12:21 Pulse Ox 95 09/03/22 12:21 FiO2 Intake & Output 09/02/22 09/03/22 09/03/22 18:59 06:59 18:59 Intake Total 377.898 592.102 Output Total 625 600 Balance -625 -222.102 592.102 Weight 127.9 kg Intake: Intake, IV Titration 137.898 112.102 Amount Heparin Sod,Pork in 0.45% 137.898 112.102 NaCl 25,000 unit In 0.45 % NaCl 1 250ml.bag @ 8. 8185 UNITS/KG/HR 10 mls/ hr IV .Q24H [facility] Rx#: [id number] Oral 240 480 Output: Urine 625 600 Other: Voiding Method Urinal Urinal # Voids 3 - Exam HEENT: Normocephalic. Neck is supple. Pupils reactive. Nostrils clear. Oral cavity is moist. Neck reveals no JVD, carotid bruits, or thyromegaly. CHEST EXAMINATION: Trachea is central. Symmetrical expansion. Bibasilar crackles. No wheezing. No rhonchi..Improved air entry CARDIAC: Normal S1, S2 with no gallops. No murmurs irregularly rhythm. ABDOMEN: Soft. Bowel sounds present. Nontender. No organomegaly. No abdominal bruits. Extremities: Bilateral lower extremity trace edema. No clubbing or cyanosis Neurologically awake, alert, oriented x3 with well-coordinated movements. No focal deficits noted Skin: No rash or skin lesions. Psychiatric: Coperative. Nonsuicidal, Musculoskeletal: No joint swelling or deformity. Normal range of motion. - Labs CBC & Chem 7: 09/03/22 11:59 09/03/22 11:59 Labs: Abnormal Lab Results - Last 24 Hours (Table) 09/02/22 09/02/22 09/02/22 Range/Units 16:56 18:17 19:57 MCV (80.0-100.0) fL Plt Count (150-450) k/uL APTT 35.3 H (22.0-30.0) sec Sodium (137-145) mmol/L Carbon Dioxide (22-30) mmol/L BUN (9-20) mg/dL Glucose (74-99) mg/dL POC Glucose (mg/dL) 184 H 213 H (70-110) mg/dL 09/03/22 09/03/22 09/03/22 Range/Units 01:13 06:00 11:59 MCV 100.3 H (80.0-100.0) fL Plt Count 148 L (150-450) k/uL APTT 32.9 H (22.0-30.0) sec Sodium (137-145) mmol/L Carbon Dioxide (22-30) mmol/L BUN (9-20) mg/dL Glucose (74-99) mg/dL POC Glucose (mg/dL) 141 H (70-110) mg/dL 09/03/22 09/03/22 09/03/22 Range/Units 11:59 11:59 12:00 MCV (80.0-100.0) fL Plt Count (150-450) k/uL APTT 44.2 H (22.0-30.0) sec Sodium 133 L (137-145) mmol/L Carbon Dioxide 20 L (22-30) mmol/L BUN 28 H (9-20) mg/dL Glucose 192 H (74-99) mg/dL POC Glucose (mg/dL) 197 H (70-110) mg/dL Microbiology - Last 24 Hours (Table) 09/01/22 19:32 Blood Culture - Preliminary Blood No Growth after 24 hours 09/01/22 19:28 Blood Culture - Preliminary Blood No Growth after 24 hours Assessment and Plan Assessment: New onset atrial fibrillation with rapid Ventricular rate Acute CHF With severely reduced ejection fraction 25%. Worsened due to A. fib with RVR. Elevated D-dimer level. No evidence of PE as per CTA chest. Hypertension Diabetes type 2 [id number] Currently everyday smoker Anxiety Daily alcohol use DVT prophylaxis Plan: Patient will be continued on telemetry monitoring. Serial troponin x3 negative. Cardizem drip has been discontinued and patient was started amiodarone drip. Started on metoprolol p.o. and anticoagulation with IV heparin. Continue with IV Lasix for another 24 hours. Cardiology is on board. Planning for cardiac catheterization due to severely reduced ejection fraction 25% as per 2D echocardiogram. Continue telemetry and follow-up closely. Prognosis is guarded at this time.
[2022-09-03 19:54] LABS: Glucose,Whole Blood 240 mg/dL (70-110)
[2022-09-04] MEDS: HEPARIN SOD,PORK IN 0.45% NACL 25,000 UNIT in 0.45% NACL 1 250ML.BAG IV SCH ×2 (03:44→18:10)
[2022-09-04 06:09] LABS: Glucose,Whole Blood 132 mg/dL (70-110)
[2022-09-04] MEDS: INSULIN ASPART (NovoLOG) 100 UNIT/ML VIAL SQ SCH ×4 (06:11→20:42)
--- NOTE | 2022-09-04 07:28 | P.PN ---
Subjective Progress Note Date: 09/04/22 Principal diagnosis: Severe cardiomyopathy This is a 57-year-old gentleman with hypertension and dyslipidemia and history of alcohol use who was admitted to the hospital with increasing shortness of breath and bilateral lower extremities edema and he was diagnosed was congestive heart failure. Also he was found to be in atrial fibrillation of unknown duration. He underwent an echocardiogram for further investigation and that revealed severe cardiomyopathy with EF of around 20% September 032021 The patient was seen this morning. He continues to have shortness of breath but he states is better. He continues to have severe bilateral lower 70s edema worse on the left than the right. Clearly distal end failure. He continues to be in atrial fibrillation with overall controlled heart rate. He is currently on amiodarone IV and beta kojo by mouth. I discussed the results of the echocardiogram with him in details. I advised the patient to undergo heart catheterization but unfortunately he received oral anticoagulation yesterday and was switch him back to heparin IV today. We will consider doing the heart catheterization either asthma or as an outpatient. Meanwhile I am going to stop metoprolol tartrate and start the patient on metoprolol succinate. Add small dose of MANAS inhibitor with lisinopril. Continue IV diuretics. Continue monitor the kidney function and electrolytes. Follow-up with the patient September 042021 The patient was seen and examined this morning. He is better. He stated that the shortness of breath has improved. He continues to have severe bilateral lower extremities edema. Currently he is on Lasix IV which I would advise to continue for additional 24 hours, assuming his kidney function this morning continues to be stable we'll follow-up on that. He reports no pain in the chest. He continues to be in atrial fibrillation with overall and controlled heart rate. I'm going to increase the dose of beta kojo with metoprolol succinate to 50 mg by mouth daily. Beside that continue heparin IV. He was started yesterday on MANAS inhibitor. We'll consider adding Aldactone down the line. Consider coronary angiogram to rule out severe CAD either as an inpatient or outpatient Objective - Vital Signs Vital signs: Vital Signs Temp 98.3 F 09/03/22 20:00 Pulse 113 H 09/04/22 04:00 Resp 17 09/04/22 04:00 BP 127/79 09/04/22 04:00 Pulse Ox 97 09/04/22 04:00 FiO2 Intake & Output 09/03/22 09/04/22 09/04/22 18:59 06:59 18:59 Intake Total 835.102 250 Output Total 525 1300 Balance 310.102 -1050 Weight 128.2 kg Intake: Intake, IV Titration 112.102 250 Amount Heparin Sod,Pork in 0.45% 112.102 250 NaCl 25,000 unit In 0.45 % NaCl 1 250ml.bag @ 8. 8185 UNITS/KG/HR 10 mls/ hr IV .Q24H [facility] Rx#: [id number] Oral 723 Output: Urine 525 1300 Other: Voiding Method Urinal # Voids 2 - Constitutional General appearance: Present: no acute distress - Respiratory Respiratory: bilateral: CTA - Cardiovascular Rhythm: irregularly irregular - Labs CBC & Chem 7: 09/03/22 11:59 09/03/22 11:59 Labs: Abnormal Lab Results - Last 24 Hours (Table) 09/03/22 09/03/22 09/03/22 Range/Units 11:59 11:59 11:59 MCV 100.3 H (80.0-100.0) fL Plt Count 148 L (150-450) k/uL APTT 44.2 H (22.0-30.0) sec Sodium 133 L (137-145) mmol/L Carbon Dioxide 20 L (22-30) mmol/L BUN 28 H (9-20) mg/dL Glucose 192 H (74-99) mg/dL POC Glucose (mg/dL) (70-110) mg/dL 09/03/22 09/03/22 09/03/22 Range/Units 12:00 16:42 19:53 MCV (80.0-100.0) fL Plt Count (150-450) k/uL APTT (22.0-30.0) sec Sodium (137-145) mmol/L Carbon Dioxide (22-30) mmol/L BUN (9-20) mg/dL Glucose (74-99) mg/dL POC Glucose (mg/dL) 197 H 231 H 240 H (70-110) mg/dL 09/04/22 Range/Units 06:08 MCV (80.0-100.0) fL Plt Count (150-450) k/uL APTT (22.0-30.0) sec Sodium (137-145) mmol/L Carbon Dioxide (22-30) mmol/L BUN (9-20) mg/dL Glucose (74-99) mg/dL POC Glucose (mg/dL) 132 H (70-110) mg/dL Microbiology - Last 24 Hours (Table) 09/01/22 19:32 Blood Culture - Preliminary Blood No Growth after 48 hours 09/01/22 19:28 Blood Culture - Preliminary Blood No Growth after 48 hours Assessment and Plan Assessment: Assessment Atrial fibrillation with RVR of unknown duration Congestive heart failure exacerbation with evidence of biventricular failure secondary to heart failure with reduced ejection fraction Severe cardiomyopathy unknown if is ischemic or nonischemic. Likely to be nonischemic related to atrial fibrillation versus alcohol use Obesity History of daily alcohol use Multiple comorbid conditions Plan Increase the dose of beta kojo Continue lisinopril Consider adding Aldactone Continue amiodarone by mouth Consider coronary angiogram The patient is not ready to go home at this point
[2022-09-04] MEDS: MELOXICAM 7.5 MG TAB PO SCH ×2 (09:13→20:42)
[2022-09-04] MEDS: PREGABALIN 100 MG CAP PO SCH ×2 (09:14→20:42)
[2022-09-04] MEDS: AMIODARONE 200 MG TAB PO SCH ×2 (09:14→20:42)
[2022-09-04] MEDS: METOPROLOL SUCCINATE (ER) 50 MG TAB.ER.24H PO SCH (09:14)
[2022-09-04] MEDS: ATORVASTATIN 10 MG TAB PO SCH (09:14)
[2022-09-04] MEDS: NICOTINE 21MG/24HR PATCH TRANSDERM SCH (09:15)
[2022-09-04] MEDS: FUROSEMIDE 10 MG/ML 4 ML VIAL IV SCH ×2 (09:15→20:42)
--- NOTE | 2022-09-04 16:47 | P.PN ---
Subjective Progress Note Date: 09/04/22 Principal diagnosis: New-onset atrial fibrillation with RVR Acute exacerbation CHF with EF 25% Elevated d-dimer 57-year-old male with a known history of hypertension, diabetes and currently everyday smoker and daily alcohol use presents to ER with complaints of exertional dyspnea and cough for the past 3 days. Patient states that he was mowing his lawn yesterday and while he was walking suddenly blacked out and had a syncopal episode. Patient was on the ground until midnight and woke up by himself. Patient crawled into the house and stayed there until today morning. Patient has not been feeling well and also having worsening shortness of breath and he called EMS. Patient was brought to ER. Patient does complain of left lower chest pain.. No fever no chills. No cough or sputum production. No nausea vomiting abdominal pain or diarrhea. No leg swelling. Chest x-ray showed clinical correlation for early CHF with atypical pulmonary edema at the lung bases. R pneumonia could be considered. CT angio of the chest showed there is extensive artifact within Limited evaluation. No surgical pulmonary embolus is evident. Growingly opacity could be underlying pneumonia within the upper lobes. Congestive heart. Not excluded. right pleural effusion. EKG showed atrial fibrillation with rapid regular rate 171 Laboratory data WBC 10.2 hemoglobin 15.8, platelets 169 D-dimer level is 0.92 Sodium 136 potassium 4.3 chloride 107 bicarb is 18 BUN 19 and creatinine 0.88 and blood sugar is 168 Troponin x3 negative and procalcitonin level is 0.03 and TSH 1.22 09/04/2022 Patient is seen and evaluated sitting up in bed; report improvement but persistent edema both lower extremities Vital signs are reviewed and stable with temperature of 98.3 pulse 1:15, respirations 17 and blood pressure of 127/79 with O2 saturation of 97% Cardiology on board and recommending to continue with IV diuretic therapy for additional 24 hours with close monitoring of renal function; cardiology recommending to increase dose of beta kojo namely metoprolol succinate up to 50 mg daily; patient has been placed on MANAS inhibitor with plan to continue and Aldactone pending clinical course Objective - Vital Signs Vital signs: Vital Signs Temp 98.3 F 09/03/22 20:00 Pulse 113 H 09/04/22 04:00 Resp 17 09/04/22 04:00 BP 127/79 09/04/22 04:00 Pulse Ox 97 09/04/22 04:00 FiO2 Intake & Output 09/03/22 09/04/22 09/04/22 18:59 06:59 18:59 Intake Total 835.102 250 222 Output Total 525 1300 Balance 310.102 -1050 222 Weight 128.2 kg Intake: Intake, IV Titration 112.102 250 Amount Heparin Sod,Pork in 0.45% 112.102 250 NaCl 25,000 unit In 0.45 % NaCl 1 250ml.bag @ 8. 8185 UNITS/KG/HR 10 mls/ hr IV .Q24H [facility] Rx#: [id number] Oral 723 222 Output: Urine 525 1300 Other: Voiding Method Urinal # Voids 2 - Exam HEENT: Normocephalic. Neck is supple. Pupils reactive. Nostrils clear. Oral cavity is moist. Neck reveals no JVD, carotid bruits, or thyromegaly. CHEST EXAMINATION: Trachea is central. Symmetrical expansion. Bibasilar crackles. No wheezing. No rhonchi..Improved air entry CARDIAC: Normal S1, S2 with no gallops. No murmurs irregularly rhythm. ABDOMEN: Soft. Bowel sounds present. Nontender. No organomegaly. No abdominal bruits. Extremities: Bilateral lower extremity trace edema. No clubbing or cyanosis Neurologically awake, alert, oriented x3 with well-coordinated movements. No focal deficits noted Skin: No rash or skin lesions. Psychiatric: Coperative. Nonsuicidal, Musculoskeletal: No joint swelling or deformity. Normal range of motion. - Labs CBC & Chem 7: 09/03/22 11:59 09/03/22 11:59 Labs: Abnormal Lab Results - Last 24 Hours (Table) 09/03/22 09/03/22 09/03/22 Range/Units 11:59 11:59 11:59 MCV 100.3 H (80.0-100.0) fL Plt Count 148 L (150-450) k/uL APTT 44.2 H (22.0-30.0) sec Sodium 133 L (137-145) mmol/L Carbon Dioxide 20 L (22-30) mmol/L BUN 28 H (9-20) mg/dL Glucose 192 H (74-99) mg/dL POC Glucose (mg/dL) (70-110) mg/dL 09/03/22 09/03/22 09/03/22 Range/Units 12:00 16:42 19:53 MCV (80.0-100.0) fL Plt Count (150-450) k/uL APTT (22.0-30.0) sec Sodium (137-145) mmol/L Carbon Dioxide (22-30) mmol/L BUN (9-20) mg/dL Glucose (74-99) mg/dL POC Glucose (mg/dL) 197 H 231 H 240 H (70-110) mg/dL 09/04/22 09/04/22 Range/Units 06:08 08:32 MCV (80.0-100.0) fL Plt Count (150-450) k/uL APTT 51.2 H (22.0-30.0) sec Sodium (137-145) mmol/L Carbon Dioxide (22-30) mmol/L BUN (9-20) mg/dL Glucose (74-99) mg/dL POC Glucose (mg/dL) 132 H (70-110) mg/dL Microbiology - Last 24 Hours (Table) 09/01/22 19:32 Blood Culture - Preliminary Blood No Growth after 48 hours 09/01/22 19:28 Blood Culture - Preliminary Blood No Growth after 48 hours Assessment and Plan Assessment: New onset atrial fibrillation with rapid Ventricular rate Acute CHF With severely reduced ejection fraction 25%. Worsened due to A. fib with RVR. Elevated D-dimer level. No evidence of PE as per CTA chest. Hypertension Diabetes type 2 [id number] Currently everyday smoker Anxiety Daily alcohol use DVT prophylaxis Plan: Patient will be continued on telemetry monitoring. Serial troponin x3 negative. Cardizem drip has been discontinued and patient was started amiodarone drip. Started on metoprolol p.o. and anticoagulation with IV heparin. Continue with IV Lasix for another 24 hours. Cardiology is on board. Planning for cardiac catheterization due to severely reduced ejection fraction 25% as per 2D echocardiogram. Continue telemetry and follow-up closely. Prognosis is guarded at this time.
[2022-09-04 16:51] LABS: Glucose,Whole Blood 189 mg/dL (70-110)
[2022-09-04 20:07] LABS: Glucose,Whole Blood 205 mg/dL (70-110)
[2022-09-04] MEDS: MELATONIN 5 MG TABLET PO SCH (20:42)
[2022-09-05 06:22] LABS: Glucose,Whole Blood 124 mg/dL (70-110)
--- NOTE | 2022-09-05 07:41 | P.PN ---
Subjective Progress Note Date: 09/05/22 Principal diagnosis: Severe cardiomyopathy This is a 57-year-old gentleman with hypertension and dyslipidemia and history of alcohol use who was admitted to the hospital with increasing shortness of breath and bilateral lower extremities edema and he was diagnosed was congestive heart failure. Also he was found to be in atrial fibrillation of unknown duration. He underwent an echocardiogram for further investigation and that revealed severe cardiomyopathy with EF of around 20% September 032021 The patient was seen this morning. He continues to have shortness of breath but he states is better. He continues to have severe bilateral lower 70s edema worse on the left than the right. Clearly distal end failure. He continues to be in atrial fibrillation with overall controlled heart rate. He is currently on amiodarone IV and beta kojo by mouth. I discussed the results of the echocardiogram with him in details. I advised the patient to undergo heart catheterization but unfortunately he received oral anticoagulation yesterday and was switch him back to heparin IV today. We will consider doing the heart catheterization either asthma or as an outpatient. Meanwhile I am going to stop metoprolol tartrate and start the patient on metoprolol succinate. Add small dose of MANAS inhibitor with lisinopril. Continue IV diuretics. Continue monitor the kidney function and electrolytes. Follow-up with the patient September 042021 The patient was seen and examined this morning. He is better. He stated that the shortness of breath has improved. He continues to have severe bilateral lower extremities edema. Currently he is on Lasix IV which I would advise to continue for additional 24 hours, assuming his kidney function this morning continues to be stable we'll follow-up on that. He reports no pain in the chest. He continues to be in atrial fibrillation with overall and controlled heart rate. I'm going to increase the dose of beta kojo with metoprolol succinate to 50 mg by mouth daily. Beside that continue heparin IV. He was started yesterday on MANAS inhibitor. We'll consider adding Aldactone down the line. Consider coronary angiogram to rule out severe CAD either as an inpatient or outpatient September 052021 The patient was seen and evaluated and examined this morning. He remains in atrial fibrillation with overall heart rate 100 beats per minute. He remains on heparin for anticoagulation. He still in mild heart failure. He is on Lasix IV. His oxygen saturation has been around 92% on room air. He still have mild bilateral lower extremities edema. In the light of cardiomyopathy I'm going to add Aldactone to the current medical regimen in addition to beta kojo as well as MANAS inhibitor. Consider proceeding with coronary angiogram later on today. Further recommendation to follow. Objective - Vital Signs Vital signs: Vital Signs Temp 97.4 F L 09/04/22 20:00 Pulse 97 09/05/22 04:00 Resp 19 09/05/22 04:00 BP 101/77 09/05/22 04:00 Pulse Ox 96 09/05/22 04:00 FiO2 Intake & Output 09/04/22 09/05/22 09/05/22 18:59 06:59 18:59 Intake Total 1166.199 Output Total 1125 950 Balance 41.199 -950 Intake: Intake, IV Titration 226.199 Amount Heparin Sod,Pork in 0.45% 226.199 NaCl 25,000 unit In 0.45 % NaCl 1 250ml.bag @ 8. 8185 UNITS/KG/HR 10 mls/ hr IV .Q24H [facility] Rx#: [id number] Oral 940 Output: Urine 1125 950 Other: Voiding Method Urinal Urinal # Voids 3 - Constitutional General appearance: Present: no acute distress - Respiratory Respiratory: bilateral: CTA - Cardiovascular Rhythm: irregularly irregular Heart sounds: normal: S1, S2 - Labs CBC & Chem 7: 09/03/22 11:59 09/03/22 11:59 Labs: Abnormal Lab Results - Last 24 Hours (Table) 09/04/22 09/04/22 09/04/22 Range/Units 08:32 16:49 20:05 APTT 51.2 H (22.0-30.0) sec POC Glucose (mg/dL) 189 H 205 H (70-110) mg/dL 09/05/22 09/05/22 Range/Units 05:29 06:20 APTT 53.7 H (22.0-30.0) sec POC Glucose (mg/dL) 124 H (70-110) mg/dL Microbiology - Last 24 Hours (Table) 09/01/22 19:32 Blood Culture - Preliminary Blood No Growth after 72 hours 09/01/22 19:28 Blood Culture - Preliminary Blood No Growth after 72 hours Assessment and Plan Assessment: Assessment Atrial fibrillation with RVR of unknown duration Congestive heart failure exacerbation with evidence of biventricular failure secondary to heart failure with reduced ejection fraction Severe cardiomyopathy unknown if is ischemic or nonischemic. Likely to be nonischemic related to atrial fibrillation versus alcohol use Obesity History of daily alcohol use Multiple comorbid conditions Plan Continue the current medical regimen Continue beta kojo and MANAS inhibitor Continue heparin and consider oral anticoagulation after the heart catheterization Add Aldactone to the current medical regimen Continue IV diuretics for additional 24 hours Follow-up with the patient
[2022-09-05] MEDS: METOPROLOL SUCCINATE (ER) 50 MG TAB.ER.24H PO SCH (08:21)
[2022-09-05] MEDS: NICOTINE 21MG/24HR PATCH TRANSDERM SCH (08:21)
[2022-09-05] MEDS: AMIODARONE 200 MG TAB PO SCH ×2 (08:21→21:05)
[2022-09-05] MEDS ORDERED: VERAPAMIL 2.5 MG/ML 2 ML AMP ONE (08:31)
[2022-09-05] MEDS ORDERED: HEPARIN SODIUM 1,000 UN/ML (10ML VL) ONE (08:31)
[2022-09-05] MEDS ORDERED: MIDAZOLAM 2 MG/2 ML VIAL IV ONE (09:08)
[2022-09-05] MEDS ORDERED: SODIUM CHLORIDE 0.9% 1,000 ML IV ONE (09:09)
[2022-09-05] MEDS ORDERED: LIDOCAINE 1% INJ 10MG/ML (30 ML VIAL-PF) SQ ONE (09:10)
[2022-09-05] MEDS ORDERED: VERAPAMIL SYRINGE (5 MG/10 ML) INTRAARTER ONE (09:22)
[2022-09-05] MEDS ORDERED: HEPARIN SODIUM 1,000 UN/ML (10ML VL) IV ONE (09:28)
[2022-09-05] MEDS ORDERED: IOPAMIDOL-370 125ML BTL INJ ONE (09:34)
[2022-09-05] MEDS ORDERED: RX INFO: IV CONTRAST WAS GIVEN 1 EACH MISC MISCELLANE PRN (09:38)
--- NOTE | 2022-09-05 09:41 | P.PCN ---
Date of Procedure: 09/05/22 Operative Findings: CARDIAC CATHETERIZATION PERFORMING PHYSICIAN: Guero Rodriguez MD, RPVI PROCEDURE PERFORMED: 1. Selective right and left coronary angiogram 2. Left heart catheterization INDICATION: Cardiomyopathy COMPLICATION: None APPROACH: Right radial artery LEVEL OF SEDATION: Moderate with a sedation length of 24 minutes PROCEDURE DESCRIPTION: After obtaining an informed consent, the patient was brought to cardiac laboratory animal caretaker. Local anesthesia was performed using lidocaine subcutaneously. The right radial artery was cannulated using Seldinger technique, the guidewire passed easily, following that we advanced a 5-Dutch sheath dilator assembly, the wire and dilator were removed and sheath was flushed. Following that, 2 mg of verapamil along with 5000 unit heparin were given. Selective right and left coronary angiogram using a 6-Dutch JR4 and JL 3.5 catheters. Following that we did left heart catheterization using 6-Dutch pigtail catheter. The procedure was completed there was no complication. SELECTIVE CORONARY ANGIOGRAM: The right coronary artery: Large caliber vessel and nondominant vessel. It is normal Left main: Angiographically normal. Bifurcates into an LCx and LAD The left circumflex: Large caliber vessel and codominant vessel. The LCx system is angiographically normal. Gives rises into a large OM branch which appeared to be angiographically normal. Distally bifurcates into PDA and PLV branches appeared to be angiographically normal The left anterior descending artery: Is angiographically normal. Gives rises into diagonal branch which seems to be angiographically normal HEMODYNAMICS: The LVEDP was 16 mmHg was no significant gradient across aortic valve CONCLUSION: 1. Normal coronary angiogram 2. Mildly elevated left side filling pressure POSTPROCEDURE MANAGEMENT: Continue the current medical regimen and consider cardioversion
[2022-09-05] MEDS ORDERED: SODIUM CHLORIDE 0.9% 1,000 ML IV SCH (09:45)
[2022-09-05 11:50] LABS: Glucose,Whole Blood 150 mg/dL (70-110)
[2022-09-05] MEDS: INSULIN ASPART (NovoLOG) 100 UNIT/ML VIAL SQ SCH ×4 (11:52→21:05)
[2022-09-05] MEDS: MELOXICAM 7.5 MG TAB PO SCH ×2 (12:42→21:04)
[2022-09-05] MEDS: PREGABALIN 100 MG CAP PO SCH ×2 (12:42→21:05)
[2022-09-05] MEDS: ATORVASTATIN 10 MG TAB PO SCH (12:43)
[2022-09-05] MEDS: SPIRONOLACTONE 25 MG TAB PO SCH (12:43)
[2022-09-05] MEDS: FUROSEMIDE 10 MG/ML 4 ML VIAL IV SCH ×2 (12:43→21:04)
[2022-09-05 16:44] LABS: Glucose,Whole Blood 180 mg/dL (70-110)
--- NOTE | 2022-09-05 18:19 | P.PN ---
Subjective Progress Note Date: 09/05/22 Principal diagnosis: New-onset atrial fibrillation with RVR Acute exacerbation CHF with EF 25% Elevated d-dimer 57-year-old male with a known history of hypertension, diabetes and currently everyday smoker and daily alcohol use presents to ER with complaints of exertional dyspnea and cough for the past 3 days. Patient states that he was mowing his lawn yesterday and while he was walking suddenly blacked out and had a syncopal episode. Patient was on the ground until midnight and woke up by himself. Patient crawled into the house and stayed there until today morning. Patient has not been feeling well and also having worsening shortness of breath and he called EMS. Patient was brought to ER. Patient does complain of left lower chest pain.. No fever no chills. No cough or sputum production. No nausea vomiting abdominal pain or diarrhea. No leg swelling. Chest x-ray showed clinical correlation for early CHF with atypical pulmonary edema at the lung bases. R pneumonia could be considered. CT angio of the chest showed there is extensive artifact within Limited evaluation. No surgical pulmonary embolus is evident. Growingly opacity could be underlying pneumonia within the upper lobes. Congestive heart. Not excluded. right pleural effusion. EKG showed atrial fibrillation with rapid regular rate 171 Laboratory data WBC 10.2 hemoglobin 15.8, platelets 169 D-dimer level is 0.92 Sodium 136 potassium 4.3 chloride 107 bicarb is 18 BUN 19 and creatinine 0.88 and blood sugar is 168 Troponin x3 negative and procalcitonin level is 0.03 and TSH 1.22 09/04/2022 Patient is seen and evaluated sitting up in bed; report improvement but persistent edema both lower extremities Vital signs are reviewed and stable with temperature of 98.3 pulse 1:15, respirations 17 and blood pressure of 127/79 with O2 saturation of 97% Cardiology on board and recommending to continue with IV diuretic therapy for additional 24 hours with close monitoring of renal function; cardiology recommending to increase dose of beta kojo namely metoprolol succinate up to 50 mg daily; patient has been placed on MANAS inhibitor with plan to continue and Aldactone pending clinical course 09/05/2022 The patient was seen and evaluated and examined this morning. He remains in atrial fibrillation; heart rate 100 beats per minute. He remains on heparin for anticoagulation. He still in mild heart failure. He is on Lasix IV. His oxygen saturation has been around 92% on room air. He still have mild bilateral lower extremities edema. In the light of cardiomyopathy I'm going to add Aldactone to the current medical regimen in addition to beta kojo as well as MANAS inhibitor. Consider proceeding with coronary angiogram later on today. -- Cardiac catheterization completed reveals normal coronary angiogram with mildly elevated left-sided filling pressures - Patient is recommended to continue with current medical regimen; possible cardioversion recommended Objective - Vital Signs Vital signs: Vital Signs Temp 97.7 F 09/05/22 08:00 Pulse 97 09/05/22 04:00 Resp 18 09/05/22 08:00 BP 103/78 09/05/22 08:00 Pulse Ox 94 L 09/05/22 08:00 FiO2 Intake & Output 09/04/22 09/05/22 09/05/22 18:59 06:59 18:59 Intake Total 1166.199 50 Output Total 1125 950 Balance 41.199 -950 50 Intake: IV 50 Intake, IV Titration 226.199 Amount Heparin Sod,Pork in 0.45% 226.199 NaCl 25,000 unit In 0.45 % NaCl 1 250ml.bag @ 8. 8185 UNITS/KG/HR 10 mls/ hr IV .Q24H RAQUEL Rx#: [id number] Oral 940 Output: Urine 1125 950 Other: Voiding Method Urinal Urinal Urinal # Voids 3 - Exam HEENT: Normocephalic. Neck is supple. Pupils reactive. Nostrils clear. Oral cavity is moist. Neck reveals no JVD, carotid bruits, or thyromegaly. CHEST EXAMINATION: Trachea is central. Symmetrical expansion. Bibasilar crackles. No wheezing. No rhonchi..Improved air entry CARDIAC: Normal S1, S2 with no gallops. No murmurs irregularly rhythm. ABDOMEN: Soft. Bowel sounds present. Nontender. No organomegaly. No abdominal bruits. Extremities: Bilateral lower extremity trace edema. No clubbing or cyanosis Neurologically awake, alert, oriented x3 with well-coordinated movements. No focal deficits noted Skin: No rash or skin lesions. Psychiatric: Coperative. Nonsuicidal, Musculoskeletal: No joint swelling or deformity. Normal range of motion. - Labs CBC & Chem 7: 09/03/22 11:59 09/03/22 11:59 Labs: Abnormal Lab Results - Last 24 Hours (Table) 09/04/22 09/04/22 09/05/22 Range/Units 16:49 20:05 05:29 APTT 53.7 H (22.0-30.0) sec POC Glucose (mg/dL) 189 H 205 H (70-110) mg/dL 09/05/22 09/05/22 Range/Units 06:20 11:47 APTT (22.0-30.0) sec POC Glucose (mg/dL) 124 H 150 H (70-110) mg/dL Microbiology - Last 24 Hours (Table) 09/01/22 19:32 Blood Culture - Preliminary Blood No Growth after 72 hours 09/01/22 19:28 Blood Culture - Preliminary Blood No Growth after 72 hours Assessment and Plan Assessment: New onset atrial fibrillation with rapid Ventricular rate Acute CHF With severely reduced ejection fraction 25%. Worsened due to A. fib with RVR. Elevated D-dimer level. No evidence of PE as per CTA chest. Hypertension Diabetes type 2 [id number] Currently everyday smoker Anxiety Daily alcohol use DVT prophylaxis Plan: Patient will be continued on telemetry monitoring. Serial troponin x3 negative. Cardizem drip has been discontinued and patient was started amiodarone drip. Started on metoprolol p.o. and anticoagulation with IV heparin. Continue with IV Lasix for another 24 hours. Cardiology is on board. Planning for cardiac catheterization due to severely reduced ejection fraction 25% as per 2D echocardiogram. Continue telemetry and follow-up closely. Prognosis is guarded at this time.
[2022-09-05 20:55] LABS: Glucose,Whole Blood 242 mg/dL (70-110)
[2022-09-05] MEDS: MELATONIN 5 MG TABLET PO SCH (21:05)
[2022-09-06 05:59] LABS: Glucose,Whole Blood 124 mg/dL (70-110)
[2022-09-06] MEDS: INSULIN ASPART (NovoLOG) 100 UNIT/ML VIAL SQ SCH ×4 (06:31→21:18)
[2022-09-06 08:15] LABS: African American GFR (CKD) >90 (>60 ml/min/1.73 sqM); Anion Gap 10 mmol/L; Blood Urea Nitrogen 24 mg/dL (9-20); Calcium 8.5 mg/dL (8.4-10.2); Carbon Dioxide 22 mmol/L (22-30); Chloride 105 mmol/L (98-107); Glucose 117 mg/dL (74-99); Magnesium 2.1 mg/dL (1.6-2.3); Non-African American GFR(CKD) 85 (>60 ml/min/1.73 sqM); Potassium 3.4 mmol/L (3.5-5.1); Sodium 137 mmol/L (137-145)
[2022-09-06] MEDS: FUROSEMIDE 20 MG TAB PO SCH ×2 (08:52→15:40)
[2022-09-06] MEDS: MELOXICAM 7.5 MG TAB PO SCH ×2 (08:52→21:17)
[2022-09-06] MEDS: METOPROLOL SUCCINATE (ER) 50 MG TAB.ER.24H PO SCH (08:52)
[2022-09-06] MEDS: PREGABALIN 100 MG CAP PO SCH ×2 (08:52→21:17)
[2022-09-06] MEDS: AMIODARONE 200 MG TAB PO SCH ×2 (08:53→21:16)
[2022-09-06] MEDS: NICOTINE 21MG/24HR PATCH TRANSDERM SCH (08:53)
[2022-09-06] MEDS: ATORVASTATIN 40 MG TAB PO SCH (08:53)
[2022-09-06] MEDS: APIXABAN 5 MG TAB PO SCH ×2 (08:53→21:17)
[2022-09-06] MEDS: SPIRONOLACTONE 25 MG TAB PO SCH (08:53)
[2022-09-06 08:55] LABS: Glucose,Whole Blood 197 mg/dL (70-110)
[2022-09-06] MEDS: DAPAGLIFLOZIN PROPANEDIOL 10 MG TABLET PO SCH (09:36)
--- NOTE | 2022-09-06 09:36 | P.PN ---
Subjective Progress Note Date: 09/06/22 PROGRESS NOTE The patient presented with atrial fibrillation and was found to have severe cardiomyopathy, underwent cardiac catheterization yesterday by Dr. Rodriguez and was found to have no obstructive disease. He continues to be in atrial fibrillation. He's feeling tired but has no chest discomfort no dizziness or palpitations. He denies any nausea or vomiting. Medications: Amiodarone 400 mg twice a day, Lipitor 40 mg daily, Lasix IV, lisinopril 2.5 milligrams daily, metoprolol succinate 50 mg daily, Eliquis 5 mg twice a day,Lyrica, Aldactone 25 mg daily PHYSICAL EXAMINATION: Blood pressure 122/80 heart rate 90 LUNGS: Clear to auscultation HEART: Irregular rate and rhythm, S1, S2. No S3. systolic ejection murmur ABDOMEN: Soft, nontender, no organomegaly EXTREMETIES: No edema, right radial pulse intact LAB: Potassium 3.4, BUN 24, creatinine 0.99 IMPRESSION: 1. Atrial fibrillation of unknown duration 2. Nonischemic cardiomyopathy 3. History of chronic tobacco use 4. History of diabetes PLAN: 1. Changed to oral diuretics 2. Add Farxiga 10 mg daily 3. Proceed with MALDONADO guided cardioversion today by Dr. Rodriguez, risks and complications discussed with the patient 4. Depending on his progress further recommendations will be made Objective - Vital Signs Vital signs: Vital Signs Temp 97.7 F 09/06/22 08:34 Pulse 98 09/06/22 08:34 Resp 18 09/06/22 08:34 BP 122/89 09/06/22 08:34 Pulse Ox 97 09/06/22 08:34 FiO2 Intake & Output 09/05/22 09/06/22 09/06/22 18:59 06:59 18:59 Intake Total 168 Output Total 400 Balance -232 Weight 127.8 kg Intake: IV 50 Oral 118 Output: Urine 400 Other: Voiding Method Urinal - Labs CBC & Chem 7: 09/03/22 11:59 09/06/22 07:16 Labs: Abnormal Lab Results - Last 24 Hours (Table) 09/04/22 09/05/22 09/05/22 Range/Units 11:56 11:47 16:37 Potassium (3.5-5.1) mmol/L BUN (9-20) mg/dL Glucose (74-99) mg/dL POC Glucose (mg/dL) 197 H 150 H 180 H (70-110) mg/dL 09/05/22 09/06/22 09/06/22 Range/Units 20:54 05:57 07:16 Potassium 3.4 L (3.5-5.1) mmol/L BUN 24 H (9-20) mg/dL Glucose 117 H (74-99) mg/dL POC Glucose (mg/dL) 242 H 124 H (70-110) mg/dL Microbiology - Last 24 Hours (Table) 09/01/22 19:32 Blood Culture - Preliminary Blood No Growth after 96 hours 09/01/22 19:28 Blood Culture - Preliminary Blood No Growth after 96 hours
[2022-09-06] MEDS ORDERED: LACTATED RINGERS 1,000 ML IV ONE ×2 (11:32)
[2022-09-06] MEDS ORDERED: PHENYLEPHRINE-0.9% NACL SYG 1,000 MCG/10 ML SYRINGE ONE (12:43)
[2022-09-06] MEDS ORDERED: PROPOFOL 10 MG/ML 20 ML VIAL IV ONE (12:43)
[2022-09-06] MEDS ORDERED: LIDOCAINE 2% INJ 20 MG/ML (2 ML VIAL) ONE (12:43)
--- NOTE | 2022-09-06 12:56 | P.PCN ---
Date of Procedure: 09/06/22 Operative Findings: TRANSESOPHAGEAL ECHOCARDIOGRAM COMMUNITY DEVELOPMENT DIRECTOR: JERI ADAMS MD, RPVI INDICATION: Rule out intracardiac thrombus before cardioversion SEDATION: Conscious sedation COMPLICATION: None LEVEL OF SEDATION The procedure was performed using propofol with [employer] TECHNICIAN in the room PROCEDURE DESCRIPTION: After obtaining an informed consent, the patient was brought to the recovery room Pulse oximetry and heart monitors were attached to the patient. The patient throat was sprayed using lidocaine. The patient was turned into left lateral position. After that a bite guard was placed. After an appropriate sedation was initiated, the transesophageal echocardiogram was advanced through a bite guard into the mid esophagus. A 2-D echocardiogram images, color Doppler images, continuous wave images, pulse-wave images, of various cardiac structure were performed. After that the transesophageal echocardiogram probe was advanced into the stomach and fixed to obtain transgastric view was. The probe was brought into the mid esophagus. Inter-atrial septum was interrogated using 2D images, color Doppler images, and then contrast study. After that transesophageal echocardiogram was withdrawn out and upon withdrawing the descending thoracic aorta all the way up to the arch was evaluated. FINDING: The left ventricle is dilated with ejection fraction about 30% with global hypokinesia. The right ventricle appeared to be of normal size and function. The left atrium is dilated V the left atrial appendage is free from any thrombus. The aortic valve is trileaflet valve without stenosis or regurgitation. The mitral valve appeared to be mildly thickened was moderate mitral regurgitation. Normal tricuspid valve and pulmonic valve. No evidence of pericardial effusion seen. The interatrial septum appeared to be intact. CONCLUSION: 1. Intact left atrial appendage with no thrombus. Intact interatrial septum 2. Dilated left ventricle was inverted function and EF around 30% 3. Moderate mitral regurgitation 4. Normal aortic valve 5. Normal tricuspid valve and pulmonic valve 6. No evidence of pericardial effusion
--- NOTE | 2022-09-06 12:57 | P.PCN ---
Date of Procedure: 09/06/22 Operative Findings: Cardioversion Report Performing physician Guero Rodriguez M.D. Procedure performed Successful cardioversion of atrial fibrillation to normal sinus mechanism using 200 J at first attempt Indication Symptomatic atrial fibrillation Complication None Level of sedation The procedure was performed under deep sedation using propofol with TRIAL COURT JUDGE in the room Procedure description After obtaining an informed consent the patient was brought to the recovery room. Sedation was introduced using propofol with TRIAL COURT JUDGE in the room. Subsequently the patient cardioverted from atrial fibrillation to normal sinus mechanism using 200 J and first attempt Conclusion Successful cardioversion of atrial fibrillation to normal sinus mechanism using 200 J Postprocedure management Continue the current medical regimen Continue oral anticoagulation Follow-up with the patient
--- NOTE | 2022-09-06 13:23 | P.PN ---
Subjective 57-year-old male with a known history of hypertension, diabetes and currently everyday smoker and daily alcohol use presents to ER with complaints of exertional dyspnea and cough for the past 3 days. Patient states that he was mowing his lawn yesterday and while he was walking suddenly blacked out and had a syncopal episode. Patient was on the ground until midnight and woke up by himself. Patient crawled into the house and stayed there until today morning. Patient has not been feeling well and also having worsening shortness of breath and he called EMS. Patient was brought to ER. Patient does complain of left lower chest pain.. No fever no chills. No cough or sputum production. No nausea vomiting abdominal pain or diarrhea. No leg swelling. Chest x-ray showed clinical correlation for early CHF with atypical pulmonary edema at the lung bases. R pneumonia could be considered. CT angio of the chest showed there is extensive artifact within Limited evaluation. No surgical pulmonary embolus is evident. Growingly opacity could be underlying pneumonia within the upper lobes. Congestive heart. Not excluded. right pleural effusion. EKG showed atrial fibrillation with rapid regular rate 171 Laboratory data WBC 10.2 hemoglobin 15.8, platelets 169 D-dimer level is 0.92 Sodium 136 potassium 4.3 chloride 107 bicarb is 18 BUN 19 and creatinine 0.88 and blood sugar is 168 Troponin x3 negative and procalcitonin level is 0.03 and TSH 1.22 09/04/2022 Patient is seen and evaluated sitting up in bed; report improvement but per sistent edema both lower extremities Vital signs are reviewed and stable with temperature of 98.3 pulse 1:15, respirations 17 and blood pressure of 127/79 with O2 saturation of 97% Cardiology on board and recommending to continue with IV diuretic therapy for additional 24 hours with close monitoring of renal function; cardiology recommending to increase dose of beta kojo namely metoprolol succinate up to 50 mg daily; patient has been placed on MANAS inhibitor with plan to continue and Aldactone pending clinical course 09/05/2022 The patient was seen and evaluated and examined this morning. He remains in atrial fibrillation; heart rate 100 beats per minute. He remains on heparin for anticoagulation. He still in mild heart failure. He is on Lasix IV. His oxygen saturation has been around 92% on room air. He still have mild bilateral lower extremities edema. In the light of cardiomyopathy I'm going to add Aldactone to the current medical regimen in addition to beta kojo as well as AMNAS inhibitor. Consider proceeding with coronary angiogram later on today. -- Cardiac catheterization completed reveals normal coronary angiogram with mildly elevated left-sided filling pressures - Patient is recommended to continue with current medical regimen; possible cardioversion recommended 09/06/2022 Patient this morning denies any dyspnea, with rest or exertion, his get up and go test is normal. No chest pain. He denies any GI or urinary complaints. He is still moderately tachycardic Apartment Maintenance evaluated the patient and he underwent cardioversion today with studies showing no intracardiac thrombosis, dilated left ventricle with ejection fraction 30% compared to 20-25% on echocardiogram and moderate mitral regurgitation Objective - Vital Signs Vital signs: Vital Signs Temp 97.7 F 09/06/22 08:34 Pulse 98 09/06/22 10:07 Resp 18 09/06/22 10:07 BP 122/89 09/06/22 08:34 Pulse Ox 97 09/06/22 08:34 FiO2 Intake & Output 09/05/22 09/06/22 09/06/22 18:59 06:59 18:59 Intake Total 168 Output Total 400 Balance -232 Weight 127.8 kg Intake: IV 50 Oral 118 Output: Urine 400 Other: Voiding Method Urinal Urinal - Exam GENERAL: The patient is alert and oriented x3, not in any acute distress. Well developed, well nourished. HEENT: Pupils are round and equally reacting to light. EOMI. No scleral icterus. No conjunctival pallor. Normocephalic, atraumatic. No pharyngeal erythema. No thyromegaly. CARDIOVASCULAR: S1 and S2 present. No murmurs, rubs, or gallops. PULMONARY: Chest is clear to auscultation, no wheezing or crackles. ABDOMEN: Soft, nontender, nondistended, normoactive bowel sounds. No palpable organomegaly. MUSCULOSKELETAL: No joint swelling or deformity. EXTREMITIES: No cyanosis, clubbing, or pedal edema. NEUROLOGICAL: Gross neurological examination did not reveal any focal deficits. SKIN: No rashes. no petechiae. - Labs CBC & Chem 7: 09/03/22 11:59 09/06/22 07:16 Labs: Abnormal Lab Results - Last 24 Hours (Table) 1009/05/22 09/05/22 Range/Units 11:56 11:47 16:37 Potassium (3.5-5.1) mmol/L BUN (9-20) mg/dL Glucose (74-99) mg/dL POC Glucose (mg/dL) 197 H 150 H 180 H (70-110) mg/dL 09/05/22 09/06/22 09/06/22 Range/Units 20:54 05:57 07:16 Potassium 3.4 L (3.5-5.1) mmol/L BUN 24 H (9-20) mg/dL Glucose 117 H (74-99) mg/dL POC Glucose (mg/dL) 242 H 124 H (70-110) mg/dL Microbiology - Last 24 Hours (Table) 09/01/22 19:32 Blood Culture - Preliminary Blood No Growth after 96 hours 09/01/22 19:28 Blood Culture - Preliminary Blood No Growth after 96 hours Assessment and Plan Assessment: New onset atrial fibrillation with rapid Ventricular rate Acute CHF With severely reduced ejection fraction 25%. Worsened due to A. fib with RVR. Moderate mitral regurgitation Elevated D-dimer level. No evidence of PE as per CTA chest. Hypertension Diabetes type 2 [id number] Currently everyday smoker Anxiety Daily alcohol use Plan: Cardiology on the case Continue with Eliquis Continue with oral Lasix Labs and medication were reviewed.. Continue same treatment. Continue with symptomatic treatment. Resume home medication. Monitor lytes and vitals. DVT and GI prophylaxis. Further recommendations as per clinical course of the patient DVT prophylaxis: Eliquis GI Prophylaxis: Pepcid
[2022-09-06 13:49] LABS: Glucose,Whole Blood 130 mg/dL (70-110)
[2022-09-06 16:40] LABS: Glucose,Whole Blood 308 mg/dL (70-110)
[2022-09-06 20:15] LABS: Glucose,Whole Blood 226 mg/dL (70-110)
[2022-09-06] MEDS: MELATONIN 5 MG TABLET PO SCH (21:17)
[2022-09-07 00:26] VITALS: RESP 14
[2022-09-07 06:20] LABS: Glucose,Whole Blood 108 mg/dL (70-110)
[2022-09-07] MEDS: INSULIN ASPART (NovoLOG) 100 UNIT/ML VIAL SQ SCH ×2 (06:23→11:56)
[2022-09-07] MEDS ORDERED: THIAMINE 100 MG TAB PO SCH (09:00)
[2022-09-07] MEDS: METOPROLOL SUCCINATE (ER) 50 MG TAB.ER.24H PO SCH (10:18)
[2022-09-07] MEDS: FUROSEMIDE 20 MG TAB PO SCH (10:18)
[2022-09-07] MEDS: ATORVASTATIN 40 MG TAB PO SCH (10:18)
[2022-09-07] MEDS: SPIRONOLACTONE 25 MG TAB PO SCH (10:19)
[2022-09-07] MEDS: APIXABAN 5 MG TAB PO SCH (10:19)
[2022-09-07] MEDS: MELOXICAM 7.5 MG TAB PO SCH (10:19)
[2022-09-07] MEDS: NICOTINE 21MG/24HR PATCH TRANSDERM SCH (10:20)
[2022-09-07] MEDS: AMIODARONE 200 MG TAB PO SCH (10:20)
[2022-09-07] MEDS: PREGABALIN 100 MG CAP PO SCH (10:20)
[2022-09-07] MEDS: DAPAGLIFLOZIN PROPANEDIOL 10 MG TABLET PO SCH (10:21)
[2022-09-07 10:27] VITALS: PULSE 78
[2022-09-07 11:17] LABS: Calcium 8.6 mg/dL (8.4-10.2)
[2022-09-07 11:30] LABS: Potassium 4.1 mmol/L (3.5-5.1)
[2022-09-07 11:44] LABS: Glucose,Whole Blood 173 mg/dL (70-110)
[2022-09-07 11:58] VITALS: BP 97/66; TEMP 96.5
--- NOTE | 2022-09-07 13:56 | P.PN ---
Subjective Progress Note Date: 09/07/22 HISTORY OF PRESENT ILLNESS: Patient is status post cardiac catheterization revealing no obstructive coronary artery disease. Patient is also status post MALDONADO and cardioversion with Dr. Hernandez. Patient is maintaining sinus mechanism this morning. Patient denies any chest pain or pressure. He denies any shortness of breath. Vital signs are stable. PHYSICAL EXAM: VITAL SIGNS: Reviewed. GENERAL: Well-developed in no acute distress. NECK: Supple. No JVD or thyromegaly LUNGS: Respirations even and unlabored. Lungs essentially clear to auscultation bilaterally. HEART: Regular rate and rhythm. S1 and S2 heard. + systolic murmur. EXTREMITIES: Normal range of motion. No clubbing or cyanosis. Peripheral pulses intact. No lower extremity edema ASSESSMENT: 1. Atrial fibrillation of unknown duration, status post MALDONADO and cardioversion 2. Nonischemic cardiomyopathy 3. History of chronic tobacco use 4. History of diabetes PLAN: Continue current cardiac medications Patient is stable for discharge home today from a cardiac standpoint He is to follow up on an outpatient basis Nurse practitioner note has been reviewed by physician. Signing provider agrees with the documented findings, assessment, and plan of care. Objective - Vital Signs Vital signs: Vital Signs Temp 96.5 F L 09/07/22 11:56 Pulse 78 09/07/22 11:56 Resp 14 09/07/22 13:30 BP 97/66 09/07/22 11:56 Pulse Ox 96 09/07/22 13:30 FiO2 Intake & Output 09/06/22 09/07/22 09/07/22 18:59 06:59 18:59 Intake Total 100 118 Output Total 425 500 Balance -325 -500 118 Intake: IV 100 Oral 118 Output: Urine 425 500 Other: Voiding Method Urinal Urinal Urinal # Voids 1 # Bowel Movements 1 - Labs CBC & Chem 7: 09/03/22 11:59 09/07/22 09:18 Labs: Abnormal Lab Results - Last 24 Hours (Table) 09/06/22 09/06/22 09/07/22 Range/Units 16:38 20:14 09:18 BUN 26 H (9-20) mg/dL Glucose 103 H (74-99) mg/dL POC Glucose (mg/dL) 308 H 226 H (70-110) mg/dL 09/07/22 Range/Units 11:42 BUN (9-20) mg/dL Glucose (74-99) mg/dL POC Glucose (mg/dL) 173 H (70-110) mg/dL Microbiology - Last 24 Hours (Table) 09/01/22 19:32 Blood Culture - Preliminary Blood No Growth after 120 hours 09/01/22 19:28 Blood Culture - Preliminary Blood No Growth after 120 hours
[2022-09-07 14:58] VITALS: BMI 38.2
--- NOTE | 2022-09-13 11:43 | P.DS ---
Providers Date of admission: 09/01/22 14:55 Attending physician: Camelia Raygoza Consults: 09/01/22 14:55 Consult Physician Urgent Consulting Provider: Guero Rodriguez Consult Reason/Comments: Atrial fibrillation Do you want consulting provider notified?: Yes Primary care physician: Cameron Pelaez [facility] Course: Diagnoses: New onset atrial fibrillation with rapid Ventricular rate Acute CHF With severely reduced ejection fraction 25%. Worsened due to A. fib with RVR. Moderate mitral regurgitation Elevated D-dimer level. No evidence of PE as per CTA chest. Hypertension Diabetes type 2 [id number] Currently everyday smoker Anxiety Daily alcohol use Hospital course: 57-year-old male with a known history of hypertension, diabetes and currently everyday smoker and daily alcohol use presents to ER with complaints of exertional dyspnea and cough for 3 days. Found to have acute CHF with ejection fraction 20-25%, status post normal cardiac cath on 09/05. Also with new onset A. fib status post cardioversion on 09/06. MALDONADO showed no evidence of thrombosis. Been evaluated and followed closely by nursery attendant. Patient today feels better. He denies chest pain or dyspnea. No new GI or urinary complaints. He is agreeable with the co-pay for his [employer] $9. Risks and benefits are explained for him. Patient was cleared for discharge by nursery attendant. Patient eager to go home today. Problems and management plan were discussed with the patient and he verbalized understanding and acceptance Patient was found stable and can be discharged home in guarded prognosis however he needs follow-up as an outpatient. Patient was instructed to follow up with PCP Dr. Pelaez within one week and patient agrees Patient was instructed to follow up with his nursery attendant Dr. Rodriguez in one to 2 weeks and he is agreeable to call and make his own appointments Physical exam Gen: patient is a AAOx3, no distress CVS: S1-S2, RRR, no murmur Lungs: B/L CTA, no wheezing Abdomen: soft, no distention, no tenderness, positive bowel sounds Extremity: no leg edema or induration Time spent more than 35 minutes Patient Condition at Discharge: Fair Plan - Discharge Summary Discharge Rx Participant: Yes New Discharge Prescriptions: New Spironolactone [Aldactone] 25 mg PO DAILY #30 tab Metoprolol Succinate (ER) [Toprol XL] 50 mg PO DAILY #30 tab Apixaban [Eliquis] 5 mg PO BID #60 tab Dapagliflozin Propanediol [Farxiga] 10 mg PO DAILY #30 tab Furosemide [Lasix] 20 mg PO BID@0900,1600 #60 tab Atorvastatin [Lipitor] 40 mg PO DAILY #30 tab Nitroglycerin Sl Tabs [Nitrostat] 0.4 mg SUBLINGUAL Q5M PRN #10 tab PRN Reason: Chest Pain lisinopriL [Zestril] 2.5 mg PO DAILY #30 tab Amiodarone [Cordarone] 200 mg PO BID #180 tab Continue Pregabalin [Lyrica] 300 mg PO BID sitaGLIPtin [Januvia] 100 mg PO DAILY metFORMIN HCL [Glucophage] 500 mg PO DAILY Lidocaine 4% Cream [Lmx 4] 1 applic TOPICAL BID Pioglitazone [Actos] 15 mg PO DAILY Discontinued amLODIPine [Norvasc] 5 mg PO DAILY Meloxicam [Mobic] 7.5 mg PO BID Losartan-Hctz 50-12.5 mg [Hyzaar 50-12.5] 1 tab PO DAILY Atorvastatin [Lipitor] 10 mg PO DAILY Glimepiride [Amaryl] 2 mg PO [id number]-[id number] Discharge Medication List Lidocaine 4% Cream [Lmx 4] 1 applic TOPICAL BID 09/01/22 [History] Pioglitazone [Actos] 15 mg PO DAILY 09/01/22 [History] Pregabalin [Lyrica] 300 mg PO BID 09/01/22 [History] metFORMIN HCL [Glucophage] 500 mg PO DAILY 09/01/22 [History] sitaGLIPtin [Januvia] 100 mg PO DAILY 09/01/22 [History] Apixaban [Eliquis] 5 mg PO BID #60 tab 09/02/22 [Rx] Amiodarone [Cordarone] 200 mg PO BID #180 tab 09/07/22 [Rx] Atorvastatin [Lipitor] 40 mg PO DAILY #30 tab 09/07/22 [Rx] Dapagliflozin Propanediol [Farxiga] 10 mg PO DAILY #30 tab 09/07/22 [Rx] Furosemide [Lasix] 20 mg PO BID@0900,1600 #60 tab 09/07/22 [Rx] Metoprolol Succinate (ER) [Toprol XL] 50 mg PO DAILY #30 tab 09/07/22 [Rx] Nitroglycerin Sl Tabs [Nitrostat] 0.4 mg SUBLINGUAL Q5M PRN #10 tab 09/07/22 [Rx] Spironolactone [Aldactone] 25 mg PO DAILY #30 tab 09/07/22 [Rx] lisinopriL [Zestril] 2.5 mg PO DAILY #30 tab 09/07/22 [Rx] Follow up Appointment(s)/Referral(s): Guero Rodriguez MD [STAFF PHYSICIAN] - 2 Weeks (OFFICE WILL CONTACT YOU WITH APPOINTMENT DATE AND TIME.) Cameron Pelaez MD [Primary Care Provider] - 1-2 days (CALL AND SCHEDULE APPOINTMENT.) Patient Instructions/Handouts: *Surgery [facility] - After Heart Catheterization - Neon Sign Servicer Instructions, Metoprolol (By mouth), Nitroglycerin (By mouth), Spironolactone (By mouth), Lisinopril (By mouth), Furosemide (By mouth), Ami odarone (By mouth), Atorvastatin (By mouth), Apixaban (By mouth), Dapagliflozin (By mouth), A-fib (Atrial Fibrillation) (DC), How to Stop Smoking (DC), Heart Healthy Diet (DC), Cardioversion (DC), Type 2 Diabetes Management for Adults (DC) Activity/Diet/Wound Care/Special Instructions: Penny lockhart is $9. heart healthy diet we recommend to check your glucose 4 times a day before each meal and at bed time, keep the results in a log book and bring it to your doctor on your appointment date If your glucose less than 70 or more than 400 then call 911 on come to emergency room Discharge/Stand Alone Forms: AA Meetings [facility], Who Do I Call?, Community Resources, Outpatient Counseling, Inp Substance Abuse Facilities, Personal Ton Cylinder Inspector Discharge Disposition: HOME SELF-CARE
== END 2022-09-07 15:04 | disposition home or self-care (01) | DRG 286 ==
LOC: EC 12:20 → 3SCARD 14:55
PROVIDERS: ADMIT Internal Medicine; ATTEND Internal Medicine
PROC: B2111ZZ Fluoroscopy of Multiple Coronary Arteries using Low Osmolar Contrast (ICD-10-PCS; 2022-09-05)
PROC: 4A023N7 Measurement of Cardiac Sampling and Pressure, Left Heart, Percutaneous Approach (ICD-10-PCS; principal; 2022-09-05 09:00)
PROC: B246ZZ4 Ultrasonography of Right and Left Heart, Transesophageal (ICD-10-PCS; 2022-09-06)
PROC: 5A2204Z Restoration of Cardiac Rhythm, Single (ICD-10-PCS; 2022-09-06)
DX: I48.0 Paroxysmal atrial fibrillation (principal); J18.9 Pneumonia, unspecified organism; I50.22 Chronic systolic (congestive) heart failure; I11.0 Hypertensive heart disease with heart failure; I42.8 Other cardiomyopathies; Z20.822 Contact with and (suspected) exposure to COVID-19; Z68.38 Body mass index [BMI] 38.0-38.9, adult; R00.0 Tachycardia, unspecified; I07.1 Rheumatic tricuspid insufficiency; E66.9 Obesity, unspecified; I48.91 Unspecified atrial fibrillation; E11.9 Type 2 diabetes mellitus without complications; I34.0 Nonrheumatic mitral (valve) insufficiency; E78.5 Hyperlipidemia, unspecified; F41.9 Anxiety disorder, unspecified; F17.210 Nicotine dependence, cigarettes, uncomplicated; Z88.8 Allergy status to other drugs, medicaments and biological substances; Z91.013 Allergy to seafood; Z79.899 Other long term (current) drug therapy; Z79.84 Long term (current) use of oral hypoglycemic drugs; Z79.1 Long term (current) use of non-steroidal anti-inflammatories (NSAID); Z88.5 Allergy status to narcotic agent
CPT/HCPCS: 36415; 71046; 71275; 80048; 80053; 80061; 81003; 83735; 83880; 84145; 84443; 84484; 85025; 85379; 85610; 85730; 87040; 92960; 93005; 93306; 93312; 93320; 93325; 93458; 94760; 96365; 96366; 96368; 96372; 96375; 99285

== ENCOUNTER 2023-10-23 12:38 | Emergency (ER) | payer MEDICARE ==
[2023-10-23] MEDS ORDERED: IPRATROPIUM-ALBUTEROL 3 ML NEB INHALATION STA (12:45)
[2023-10-23] MEDS ORDERED: PANTOPRAZOLE 40 MG/10 ML VIAL IVP STA (12:45)
[2023-10-23] MEDS ORDERED: SODIUM CHLORIDE 0.9% 1,000 ML IV STA (12:45)
[2023-10-23] MEDS ORDERED: HYDROmorphone 1 MG/ML 1 ML SYRINGE IVP STA (12:45)
[2023-10-23] MEDS ORDERED: ONDANSETRON 4 MG/2 ML VIAL IVP STA (12:45)
--- NOTE | 2023-10-23 12:51 | ED ---
Fall HPI - General Stated Complaint: Rib Pain Time Seen by Provider: 10/23/23 12:42 Source: RN notes reviewed, old records reviewed Mode of arrival: EMS Limitations: altered mental status - History of Present Illness Initial Comments: This is a 58-year-old male to the emergency department for evaluation side pain rib pain back pain abdominal pain and shortness of breath. Patient presents today for evaluation regards to fall. Fall with severe left-sided chest pain abdominal pain. Significant bruising and shortness of breath. Increasing weakness lately. Patient states he may have passed out prior to fall yesterday's unsure. Pain is been persistent and worsening today MD Complaint: fall -: hour(s) Fall From: standing When Fall Occurred: 24 hours THEATRE MANAGER Fall Witnessed: no Place Fall Occurred: home Loss of Consciousness: none Prolonged Down Time?: no Symptoms Prior to Fall: none Location: chest, back, abdomen Severity: severe Severity scale (1-10): 8 Context: tripped/slipped Associated Symptoms: denies - Related Data Home Medications Medication Instructions Recorded Confirmed Lidocaine 4% Cream [Lmx 4] 1 applic TOPICAL BID 09/01/22 09/01/22 Pioglitazone [Actos] 15 mg PO DAILY 09/01/22 09/01/22 Pregabalin [Lyrica] 300 mg PO BID 09/01/22 09/01/22 metFORMIN HCL [Glucophage] 500 mg PO DAILY 09/01/22 09/01/22 sitaGLIPtin [Januvia] 100 mg PO DAILY 09/01/22 09/01/22 Previous Rx's Medication Instructions Recorded Apixaban [Eliquis] 5 mg PO BID #60 tab 09/02/22 Amiodarone [Cordarone] 200 mg PO BID #180 tab 09/07/22 Atorvastatin [Lipitor] 40 mg PO DAILY #30 tab 09/07/22 Dapagliflozin Propanediol [Farxiga] 10 mg PO DAILY #30 tab 09/07/22 Furosemide [Lasix] 20 mg PO BID@0900,1600 #60 tab 09/07/22 Metoprolol Succinate (ER) [Toprol 50 mg PO DAILY #30 tab 09/07/22 XL] Nitroglycerin Sl Tabs [Nitrostat] 0.4 mg SUBLINGUAL Q5M PRN #10 tab 09/07/22 Spironolactone [Aldactone] 25 mg PO DAILY #30 tab 09/07/22 lisinopriL [Zestril] 2.5 mg PO DAILY #30 tab 09/07/22 Allergies Allergy/AdvReac Type Severity Reaction Status Date / Time Fish Containing Products Allergy Anaphylaxis Verified 10/23/23 12:52 [Fish] morphine AdvReac Itching Verified 10/23/23 12:52 Review of Systems ROS Statement: Those systems with pertinent positive or pertinent negative responses have been documented in the HPI. ROS Other: All systems not noted in ROS Statement are negative. Past Medical History Past Medical History: Diabetes Mellitus, Hypertension History of Any Multi-Drug Resistant Organisms: None Reported Past Surgical History: Back Surgery, Orthopedic Surgery Past Anesthesia/Blood Transfusion Reactions: No Reported Reaction Past Psychological History: Anxiety Smoking Status: Current every day smoker Past Alcohol Use History: Daily Past Drug Use History: None Reported General Exam General appearance: alert, in no apparent distress, anxious Head exam: Present: atraumatic, normocephalic, normal inspection Eye exam: Present: normal appearance, PERRL, EOMI. Absent: scleral icterus, conjunctival injection, periorbital swelling ENT exam: Present: normal exam, mucous membranes moist Neck exam: Present: normal inspection. Absent: tenderness, meningismus, lymph adenopathy Respiratory exam: Present: respiratory distress, wheezes. Absent: rales, rhonchi, stridor Cardiovascular Exam: Present: tachycardia, irregular rhythm, normal heart sounds. Absent: systolic murmur, diastolic murmur, rubs, gallop, clicks GI/Abdominal exam: Present: soft, normal bowel sounds. Absent: distended, t enderness, guarding, rebound, rigid Extremities exam: Present: normal inspection, full ROM, normal capillary refill. Absent: tenderness, pedal edema, joint swelling, calf tenderness Back exam: Present: normal inspection Neurological exam: Present: alert, oriented X3, CN II-XII intact Psychiatric exam: Present: normal affect, normal mood Skin exam: Present: warm, dry, intact, normal color. Absent: rash Course Vital Signs 10/23/23 10/23/23 10/23/23 12:50 13:35 13:44 Temperature 98 F Pulse Rate 104 H 92 95 Respiratory 28 H Rate Blood Pressure 156/104 O2 Sat by Pulse 90 L Oximetry 10/23/23 15:20 Temperature Pulse Rate 90 Respiratory 18 Rate Blood Pressure 112/78 O2 Sat by Pulse 93 L Oximetry - Reevaluation(s) Reevaluation #1: 10/23/23 13:14 Medical record is reviewed Reevaluation #2: Patient's pain is much improved, controlled, patient's breathing is improved Reevaluation #3: Patient informed results questions answered prefers discharged home Reevaluation #4: 10/23/23 12:54 Was pt. sent in by a medical professional or institution (, ONI, SNIPPER, urgent care, hospital, or senior care...) When possible be specific @ -no Did you speak to anyone other than the patient for history (EMS, parent, family, police, friend...)? What history was obtained from this source @ -no Did you review nursing and triage notes (agree or disagree)? Why? @ -agree Are old charts reviewed (outside hosp., previous admission, EMS record, old EKG, old radiological studies, urgent care reports/EKG's, senior care records)? Report findings @ -yes Differential Diagnosis (chest pain, altered mental status, abdominal pain women, abdominal pain men, vaginal bleeding, weakness, fever, dyspnea, syncope, headache, dizziness, GI bleed, back pain, seizure, CVA, palpatations, mental health, musculoskeletal)? @ -prior EKG interpreted by me (3pts min.). @ -yes X-rays interpreted by me (1pt min.). @ -yes positive for rib fracture CT interpreted by me (1pt min.). @ -no U/S interpreted by me (1pt. min.). @ -no What testing was considered but not performed or refused? (CT, X-rays, U/S, labs)? Why? @ -none What meds were considered but not given or refused? Why? @ -none Did you discuss the management of the patient with other professionals (pema roland i.e. , ONI, SNIPPER, lab, RT, psych nurse, social research assistant, payroll representative, teacher, airline pilot/first officer, case management director)? Give summary @ -no Was smoking cessation discussed for >3mins.? @ -no Was critical care preformed (if so, how long)? @ -no Were there social determinants of health that impacted care today? How? (Homelessness, low income, unemployed, alcoholism, drug addiction, transportation, low edu. Level, literacy, decrease access to med. care, fpc, rehab)? @ -none Was there de-escalation of care discussed even if they declined (Discuss DNR or withdrawal of care, Hospice)? DNR status @ -no What co-morbidities impacted this encounter? (DM, HTN, Smoking, COPD, CAD, Cancer, CVA, ARF, Chemo, Hep., AIDS, mental health diagnosis, sleep apnea, morbid obesity)? @ -none Was patient admitted / discharged? Hospital course, mention meds given and route, prescriptions, significant lab abnormalities, going to OR and other pertinent info. @ - 58 male to the emergency department for evaluation of weakness of fall fall landing on the left side of his chest with positive rib fracture. Patient has left for fracture with no pneumothorax no other injury or traumatic event noted. Patient can be discharged home Undiagnosed new problem with uncertain prognosis? @ -no Drug Therapy requiring intensive monitoring for toxicity (Heparin, Nitro, Insulin, Cardizem)? @ -no Were any procedures done? @ -no Diagnosis/symptom? @ -Fall with rib fracture Acute, or Chronic, or Acute on Chronic? @ -Acute Uncomplicated (without systemic symptoms) or Complicated (systemic symptoms)? @ -Complicated Side effects of treatment? @ -no Exacerbation, Progression, or Severe Exacerbation? @ -exacerbation Poses a threat to life or bodily function? How? (Chest pain, USA, OR, pneumonia, PE, COPD, DKA, ARF, appy, cholecystitis, CVA, Diverticulitis, Homicidal, Suicidal, threat to staff... and all critical care pts) @ -yes with significant trauma Reevaluation #5: Differential Dyspnea: Coronary syndrome, arrhythmia, tamponade, asthma, COPD, pulmonary embolism, pneumonia, pneumothorax, pulmonary effusion, anaphylaxis, diabetic ketoacidosis, flailed chest, pulmonary contusion, diaphragmatic rupture, anemia, neuromuscular, this is not meant to be an all-inclusive list. Medical Decision Making - Medical Decision Making 58 male to the emergency department for evaluation of weakness of fall fall landing on the left side of his chest with positive rib fracture. Patient has left for fracture with no pneumothorax no other injury or traumatic event noted. Patient can be discharged home - Lab Data Result diagrams: 10/23/23 13:06 10/23/23 13:06 Lab Results 10/23/23 10/23/23 10/23/23 Range/Units 13:06 13:06 13:06 WBC 10.6 (3.8-10.6) k/uL RBC 5.01 (4.30-5.90) m/uL Hgb 17.3 (13.0-17.5) gm/dL Hct 50.9 (39.0-53.0) % MCV 101.6 H (80.0-100.0) fL MCH 34.5 (25.0-35.0) pg MCHC 33.9 (31.0-37.0) g/dL RDW 14.1 (11.5-15.5) % Plt Count 224 (150-450) k/uL MPV 8.1 Neutrophils % 85 % Lymphocytes % 8 % Monocytes % 5 % Eosinophils % 0 % Basophils % 0 % Neutrophils # 9.0 H (1.3-7.7) k/uL Lymphocytes # 0.9 L (1.0-4.8) k/uL Monocytes # 0.6 (0-1.0) k/uL Eosinophils # 0.0 (0-0.7) k/uL Basophils # 0.0 (0-0.2) k/uL Macrocytosis Slight Sodium 137 (137-145) mmol/L Potassium 4.2 (3.5-5.1) mmol/L Chloride 102 (98-107) mmol/L Carbon Dioxide 20 L (22-30) mmol/L Anion Gap 15 mmol/L BUN 8 L (9-20) mg/dL Creatinine 0.72 (0.66-1.25) mg/dL Est GFR (CKD-EPI)AfAm >90 (>60 ml/min/1.73 sqM) Est GFR (CKD-EPI)NonAf >90 (>60 ml/min/1.73 sqM) Glucose 162 H (74-99) mg/dL Plasma Lactic Acid Gabe (0.7-2.0) mmol/L Calcium 9.5 (8.4-10.2) mg/dL Total Bilirubin 1.1 (0.2-1.3) mg/dL AST 38 (17-59) U/L ALT 32 (4-49) U/L Alkaline Phosphatase 130 H (38-126) U/L Troponin I (0.000-0.034) ng/mL Total Protein 7.7 (6.3-8.2) g/dL Albumin 4.3 (3.5-5.0) g/dL Amylase 54 (30-110) U/L Lipase 89 (23-300) U/L Urine Color Colorless Urine Appearance Clear (Clear) Urine pH 5.0 (5.0-8.0) Ur Specific [place] 1.021 (1.001-1.035) Urine Protein Negative (Negative) Urine Glucose (UA) 4+ H (Negative) Urine Ketones 1+ H (Negative) Urine Blood Negative (Negative) Urine Nitrite Negative (Negative) Urine Bilirubin Negative (Negative) Urine Urobilinogen <2.0 (<2.0) mg/dL Ur Leukocyte Esterase Negative (Negative) 10/23/23 10/23/23 Range/Units 13:06 13:06 WBC (3.8-10.6) k/uL RBC (4.30-5.90) m/uL Hgb (13.0-17.5) gm/dL Hct (39.0-53.0) % MCV (80.0-100.0) fL MCH (25.0-35.0) pg MCHC (31.0-37.0) g/dL RDW (11.5-15.5) % Plt Count (150-450) k/uL MPV Neutrophils % % Lymphocytes % % Monocytes % % Eosinophils % % Basophils % % Neutrophils # (1.3-7.7) k/uL Lymphocytes # (1.0-4.8) k/uL Monocytes # (0-1.0) k/uL Eosinophils # (0-0.7) k/uL Basophils # (0-0.2) k/uL Macrocytosis Sodium (137-145) mmol/L Potassium (3.5-5.1) mmol/L Chloride (98-107) mmol/L Carbon Dioxide (22-30) mmol/L Anion Gap mmol/L BUN (9-20) mg/dL Creatinine (0.66-1.25) mg/dL Est GFR (CKD-EPI)AfAm (>60 ml/min/1.73 sqM) Est GFR (CKD-EPI)NonAf (>60 ml/min/1.73 sqM) Glucose (74-99) mg/dL Plasma Lactic Acid Gabe 1.7 (0.7-2.0) mmol/L Calcium (8.4-10.2) mg/dL Total Bilirubin (0.2-1.3) mg/dL AST (17-59) U/L ALT (4-49) U/L Alkaline Phosphatase (38-126) U/L Troponin I <0.012 (0.000-0.034) ng/mL Total Protein (6.3-8.2) g/dL Albumin (3.5-5.0) g/dL Amylase (30-110) U/L Lipase (23-300) U/L Urine Color Urine Appearance (Clear) Urine pH (5.0-8.0) Ur Specific [place] (1.001-1.035) Urine Protein (Negative) Urine Glucose (UA) (Negative) Urine Ketones (Negative) Urine Blood (Negative) Urine Nitrite (Negative) Urine Bilirubin (Negative) Urine Urobilinogen (<2.0) mg/dL Ur Leukocyte Esterase (Negative) - Radiology Data Radiology results: report reviewed (CT chest 7 pelvis is positive for left-sided rib fractures), image reviewed Disposition Clinical Impression: Fall, Left rib fracture, Pre-syncope, Atrial fibrillation with rapid ventricular response Disposition: HOME SELF-CARE Condition: Good Instructions (If sedation given, give patient instructions): Rib Fracture (ED) Is patient prescribed a controlled substance at d/c from ED?: No Referrals: Cameron Pelaez MD [Primary Care Provider] - 1-2 days Time of Disposition: 15:30
[2023-10-23 13:01] VITALS: TEMP 98
[2023-10-23 13:45] LABS: ALT 32 U/L (4-49); AST 38 U/L (17-59); African American GFR (CKD) >90 (>60 ml/min/1.73 sqM); Albumin 4.3 g/dL (3.5-5.0); Alkaline Phosphatase 130 U/L (38-126); Amylase 54 U/L (30-110); Anion Gap 15 mmol/L; Blood Urea Nitrogen 8 mg/dL (9-20); Calcium 9.5 mg/dL (8.4-10.2); Carbon Dioxide 20 mmol/L (22-30); Chloride 102 mmol/L (98-107); Glucose 162 mg/dL (74-99); Lipase 89 U/L (23-300); Non-African American GFR(CKD) >90 (>60 ml/min/1.73 sqM); Potassium 4.2 mmol/L (3.5-5.1); Sodium 137 mmol/L (137-145); Total Bilirubin 1.1 mg/dL (0.2-1.3); Total Protein 7.7 g/dL (6.3-8.2)
[2023-10-23 13:48] LABS: Basophils % (A) 0 %; Eosinophils % (A) 0 %; HCT 50.9 % (39.0-53.0); HGB 17.3 gm/dL (13.0-17.5); Lymphocytes # (A) 0.9 k/uL (1.0-4.8); Lymphocytes % (A) 8 %; MCH 34.5 pg (25.0-35.0); MCHC 33.9 g/dL (31.0-37.0); MCV 101.6 fL (80.0-100.0); Macrocytosis Slight; Mean Platelet Volume 8.1; Monocytes # (A) 0.6 k/uL (0-1.0); Monocytes % (A) 5 %; Neutrophils % (A) 85 %; Platelet Count 224 k/uL (150-450); RBC 5.01 m/uL (4.30-5.90); RDW 14.1 % (11.5-15.5); WBC 10.6 k/uL (3.8-10.6)
--- NOTE | 2023-10-23 15:16 | CT ---
EXAMINATION TYPE: CT ChestAbdPelvis w con DATE OF EXAM: 10/23/2023 COMPARISON: None HISTORY: Fall yesterday, hit left side on table. Left side rib pain and bruising. SOB. CT DLP: 1669.6 mGycm Automated exposure control for dose reduction was used. CONTRAST: CT scan of the chest, abdomen and pelvis is performed without Oral Contrast and with IV Contrast, pat ient injected with 100 ml mL of Isovue 300. FINDINGS: Chest CT: There are mildly displaced fractures of the left eighth and ninth ribs and a nondisplaced fracture of the left seventh rib. There is mild adjacent pleural thickening and left lower lobe atelectasis. The re is hazy density within the lungs which could represent mild contusion. There is no pneumothorax. The right lung is clear. The great vessels chest are normal is no mediastinal, hilar or axillary adenopathy. There is a 15 mm nodule in the left upper lobe medially. Further evaluation is warranted CT abdomen and pelvis: The gallbladder is normal. There is no focal mass or organomegaly involving the solid visceral organs of the upper abdomen. There is no solid renal mass or hydronephrosis. The caliber the dominant aorta is normal. The bowel loops are normal in caliber and there is no dilatation or obstruction. No free intraperiton eal air or fluid. No inflammatory changes identified in the bowel wall or mesentery. There is no pelvic mass, free fluid, abscess or adenopathy. There are postsurgical changes of laminec clovis and fusion in the lumbar spine otherwise the osseous structures are intact. IMPRESSION: 1. Left rib fractures with mild pleural thickening and lung atelectasis and/or contusion. 2. 15 mm left upper lobe pulmonary nodule. Similarly appearing density was seen on the prior CTA of t he chest dated 09/01/2022. As precautionary measure, up CT chest recommended in 3-4 months. 3. No acute changes within the abdomen or pelvis.
[2023-10-23] MEDS ORDERED: IBUPROFEN 600 MG STARTER PACK 4 TAB BTL PO STA (15:33)
[2023-10-23] MEDS ORDERED: KETOROLAC 15 MG/ML 1 ML VIAL IVP STA (15:33)
[2023-10-23] MEDS ORDERED: ACET/COD 300 MG/30 MG STARTER PACK 6 TAB BTL PO STA (15:33)
[2023-10-23] MEDS ORDERED: HYDROmorphone 0.5 MG/0.5 ML SYRINGE IVP STA (15:33)
[2023-10-23 15:41] VITALS: BP 112/78; PULSE 90; RESP 18
[2023-10-23 15:41] LABS: Appearance,Urine Clear (Clear); Bilirubin,Urine Negative (Negative); Blood,Urine Negative (Negative); Color,Urine Colorless; Glucose,Urine (UA) 4+ (Negative); Ketones,Urine 1+ (Negative); Leukocyte Esterase,Urine Negative (Negative); Nitrite,Urine Negative (Negative); Protein,Urine Negative (Negative); Specific Gravity,Urine 1.021 (1.001-1.035); Urobilinogen,Urine <2.0 mg/dL (<2.0)
== END 2023-10-23 15:59 | disposition home or self-care (01) ==
LOC: EC 12:38
DX: S22.32XA Fracture of one rib, left side, initial encounter for closed fracture (principal); I48.91 Unspecified atrial fibrillation; E11.9 Type 2 diabetes mellitus without complications; I10 Essential (primary) hypertension; F17.200 Nicotine dependence, unspecified, uncomplicated; Z86.59 Personal history of other mental and behavioral disorders; Z79.84 Long term (current) use of oral hypoglycemic drugs; Z88.5 Allergy status to narcotic agent; Z91.013 Allergy to seafood; W01.0XXA Fall on same level from slipping, tripping and stumbling without subsequent striking against object, initial encounter
CPT/HCPCS: 99284; 96374; 96375 ×3; 96361 ×2; 36415; 94640; 80053; 82150; 83605; 83690; 84484; 85025; 81003; 71260; 74177; 96376; J2405; J1170 ×2; J1885; C9113; Q9967